=== PATIENT | female | born 1950 | race Caucasian/White ===

== ENCOUNTER 2023-09-24 10:07 | Outpatient (CLI) | payer MEDICARE, OTHER, SELFPAY | END 2023-09-24 10:08 | disposition home or self-care (01) | LOC: INJ CL 10:08 | PROVIDERS: PCP Family Medicine; Visit Provider Family Medicine | DX: M54.16 Radiculopathy, lumbar region (principal); M51.36 Other intervertebral disc degeneration, lumbar region | CPT/HCPCS: 62323; J0702; Q9966 ==

== ENCOUNTER 2024-03-24 11:08 | Outpatient (CLI) | payer MEDICARE, OTHER, SELFPAY ==
--- OUTSIDE RECORDS SUMMARY | 2024-03-24 11:10 | XMS_ITS | Clinical Summary ---
Author Organization [facility] Address [place], [place] [address] Care Team Providers Care Typing Teacher Name Role Phone Tiara Sanford MD Primary Care Provider [phone] Radha Gonzalez OD Unavailable [phone] Trino Cintron MD Unavailable [phone] Edouard Shelton MD Unavailable Staff, Other Clinical Unavailable Unavailabl e Allergies Active Allergy Reactions Criticality Noted Date Comments Atorvastatin Myalgia 10/31/2006 Medications Medication Sig Dispensed Refills Start Date End Date Status omega-3 fatty acids-vitamin E (FISH OIL) 1,000 mg Cap takes two caps daily 0 09/16/2009 Active cholecalciferol (VITAMIN D3) 2,000 unit capsuleIndications:V itamin D deficiency Take 1 capsule by mouth every day. 0 12/05/2011 Active guaifenesin/phenylep hrine HCl (MUCINEX COLD ORAL) Take 1 Tab by mouth every 6 hours if needed. Active oxygen-air delivery systems (HOME OXYGEN)Indications:C hronic respiratory failure with hypoxia, on home oxygen therapy (HC) Oxygen for home use. Liters per minute: 2 per nasal cannula. Frequency of use: Continuous with portability.;. Length of need: 99 Months. 1 Device 04/06/2020 Active metroNIDAZOLE 0.75 % cream 06/15/2021 Active ketoconazole 2% topical (NIZORAL) creamIndications:Tin ea corporis MASSAGE ONTO BOTTOMS OF FEET TWICE DAILY 60 g 2 04/06/2022 Active blood sugar diagnostic (FreeStyle Lite Strips) stripIndications:Typ e 2 diabetes mellitus with complication, without long-term current use of insulin (HC) As directed 1 Strip once daily. 100 Each 06/05/2022 Active rosuvastatin (CRESTOR) 5 mg tabletIndications:Hy perlipidemia, unspecified hyperlipidemia type Take 1 Tablet (5 mg) by mouth once daily. 90 Tablet 03/12/2023 Active predniSONE (DELTASONE) 20 mg tabletIndications:Ch ronic obstructive pulmonary disease, unspecified COPD type (HC) TAKE 1 TABLET THREE TIMES A DAY WITH MEALS FOR 5 DAYS 15 Tablet 2 03/12/2023 Active pantoprazole (PROTONIX) 40 mg delayed-release tabletIndications:Ga stroesophageal reflux disease without esophagitis Take 1 Tablet (40 mg) by mouth once daily. 90 Tablet 03/12/2023 Active metFORMIN (GLUCOPHAGE) 500 mg tabletIndications:Di abetes mellitus without complication (HC) Take 2 Tablets (1,000 mg) by mouth once daily with evening meal. 180 Tablet 03/12/2023 Active hydroCHLOROthiazide (HCTZ) 25 mg tabletIndications:Hy pertension, unspecified type Take 1 Tablet (25 mg) by mouth once daily. 90 Tablet 03/12/2023 Active fluticasone tlv-ztwvlcjmxrjx-oeo anterol (Trelegy Ellipta) 100-62.5-25 mcg inhalerIndications:C OPD, moderate (HC) Inhale 1 Puff by mouth once daily. 90 Each 03/12/2023 Active albuterol HFA (PRO-AIR; VENTOLIN; PROVENTIL) 90 mcg/actuation inhalerIndications:C hronic obstructive pulmonary disease, unspecified COPD type (HC) Inhale 1-2 Puffs by mouth every 4 hours if needed for Shortness of Breath 1st choice or Wheezing 1st choice. 1 Each 5 03/12/2023 Active cycloSPORINE (RESTASIS) 0.05 % ophthalmic emulsionIndications: Dry eyes Place 1 Drop into both eyes every 12 hours. 1 Each 11 05/06/2023 Active polyvinyl alcohol (ARTIFICAL TEARS) 1.4 % ophthalmic solutionIndications: Dry eyes Place 1 Drop into both eyes each time if needed for Dry Eyes. 15 mL 05/14/2023 Active levothyroxine (SYNTHROID) 112 mcg tabletIndications:Hy pothyroidism (acquired) TAKE 1 TABLET DAILY (BEST IF TAKEN ON EMPTY STOMACH) 90 Tablet 2 06/22/2023 Active Clobetasol Propionate 0.05 % shampooIndications:P soriasis Apply a thin layer onto dry, affected area twice a week Leave for 15 minutes before lathering and rinsing. 118 mL 2 07/01/2023 Active dulaglutide (Trulicity) 0.75 mg/0.5 mL subcutaneous penIndications:Type 2 diabetes mellitus with complication, without long-term current use of insulin (HC) Inject 0.75 mg subcutaneous once weekly. 6 mL 2 08/28/2023 Active ibuprofen (ADVIL; MOTRIN) 600 mg tabletIndications:Ot her follicular cysts of the skin and subcutaneous tissue Take 1 Tablet (600 mg) by mouth every 6 hours if needed for Pain. Maximum of 3200 mg in 24 hours. 30 Tablet 09/18/2023 Active meloxicam 15 mg tabletIndications:Pr imary osteoarthritis of both knees TAKE 1 TABLET DAILY 90 Tablet 01/10/2024 Active LORazepam (ATIVAN) 1 mg tabletIndications:Silke mbar radiculopathy Take 1 Tablet (1 mg) by mouth one time for 1 dose. Before mri 1 Tablet 02/13/2024 Active oxybutynin XL (DITROPAN XL) 5 mg CR tabletIndications:Ur inary incontinence, unspecified type Take 1 Tablet (5 mg) by mouth once daily. 90 Tablet 3 02/17/2024 Active FLUoxetine (PROZAC) 10 mg capsuleIndications:D epression, major, single episode, mild (HC) Take 1 Capsule (10 mg) by mouth every morning. 90 Capsule 02/17/2024 Active Active Problems Problem Noted Date Diagnosed Date Right renal mass 02/23/2022 Overview: seen on lung CT scan: negative renal US to follow- no further work up needed. History of tobacco use 02/23/2022 Chronic obstructive pulmonary disease 10/09/2019 Overview: seen by pulmonology: recommend annual breathing testing. Some stable scarring from previous pneumonia Chronic respiratory failure with hypoxia, on home oxygen therapy 10/09/2019 Type 2 diabetes mellitus wit h complication, without long-term current use of insulin 04/29/2019 Arthritis of left hip 10/13/2018 Genu varum of both lower extremities 03/28/2018 Basal cell carcinoma of forehead 03/16/2014 Vitamin D deficiency 11/10/2010 Mildly prolonged Q-T interva l on ECG (QT/QTc 474/485 ms 01/04/2010) 11/10/2010 Hypothyroidism 01/09/2010 Sensorineural hearing loss, bilateral 06/22/2008 Esophageal reflux 08/26/2006 Other and unspecified hyperlipidemia 08/26/2006 Type II or unspecified type diabetes mellitus without mention of complication, not stated as uncontrolled Resolved Problems Problem Noted Date Diagnosed Date Resolved Date Obesity, morbid 06/04/2022 03/12/2023 Left hip pain 02/13/2019 03/12/2023 Arthritis of right knee 10/13/2018 05/0 02/2022 Rash 08/21/2018 10/08/2018 Status post total right knee replacement 08/05/2018 02/08/2022 Knee contracture, right 08/05/201808/08 Chronic pain of right knee 08/04/2018 1 10/29/2017 Gait disturbance 08/04/2018 08/15/2018 Status post right hip replacement 08/04/2018 02/08/2022 Arthritis of right knee 02/03/201808/08 Morbid obesity 12/18/2017 10/08/2018 Presence of artificial hip, right 11/06/2017 08/01/2018 Drainage from wound 11/06/2017 08/01/20 18 Status post right hip replacement 11/04/2017 08/01/2018 Fat necrosis 11/04/2017 08/01/2018 Drainage from wound 11/04/2017 08/01/20 18 Gait disturbance 10/17/2017 08/01/2018 Chronic hip pain 10/10/2017 08/01/2018 Arthritis of right hip 10/10/201708/01 Knee pain 11/08/2011 08/01/2018 Overview: Knee pain: known meniscal tear: not repairable, intermittent FMLA paperwork completed:11/07/2011 Moderate persistent asthma 05/26/2011 0 02/15/2016 Moderate persistent asthma 05/26/2011 0 05/26/2011 Carline's thyroiditis 01/09/201005/08 Unspecified asthma(493.90) 01/09/2010 0 05/26/2011 Vitamin D deficiency 01/05/2010 010 Chronic airway obstruction, not elsewhere classified 08/26/2006 10/09/2019 Overview: asthma pulmonary function testing revealed moderate obstruction Osteoarthrosis, unspecified whether generalized or localized, unspecified site 08/26/2006 03/12/2023 Myalgia and myositis, unspecified 08/26/2006 04/06/2010 Chronic obstructive pulmonary disease 08/01/2018 Simple chronic bronchitis Gastroesophageal reflux disease 08/01/2018 Chronic pain of right hip Status post hip surgery 07/08 Encounters Date Type Department Care Team Description 03/22/2024 Travel 02/26/2024 Telephone [facility] [address] [place] [address] Devante Blackmon MD Results (MRI) 02/24/2024 10:42 AM CDT - 02/24/2024 11:59 PM CDT Hospital Encounter [facility] [address] [place] [address] Devante Blackmon MD DDD (degenerative disc disease), lumbar; Lumbar radiculopathy; Arthritis of left hip; Primary osteoarthritis of left knee; Lumbar facet arthropathy 02/24/2024 Travel 02/17/2024 3:15 PM CDT Office Visit [facility] [address] [place] [phone] Tiara Sanford MD Diabetes (No concerns); Urinary Problem (Since October been having concerns) 02/17/2024 Travel 02/13/2024 10:20 AM CDT Office Visit [facility] [address] [place] [address] Devante Blackmon MD Musculoskeletal Problem (Follow up back, left hip and left knee pain) 02/12/2024 Travel 01/08/2024 Refill [facility] [address] [place] [address] Tiara Sanford MD Refill Request (Meloxicam) 12/24/2023 Telephone [facility] [address] [facility] [place] [phone] Tiara Sanford MD Form from Last 3 Months Immunizations Name Administration Dates Next Due COVID-19 vaccine (Moderna 100mcg/0.5mL) SOFYA KHANNA 01/15/2022,07/28/2021,12/09/2020,2020 Hepatitis A (Adult) 04/03/2010,10/17/2009 Influenza A (H1N1), Inactiva loraine (Age >=3 Years) 10/04/2009 Influenza, High-dose Inactivated 08/07/2019,04/2016 Influenza, High-dose Quadriv alent Inactivated 07/02/2023,07/25/2022 Influenza, IIV3 (Age 6-35 mos) 09/11/2011 Influenza, IIV3 (Age >=3 years) 07/01/20 13,09/01/2012,09/11/2011,2009,10/04/2009,08/26/2006 Influenza, IIV4 08/06/2019,08/12/2015,07/05/2014 Influenza, Inactivated AIIV4 (Age 65+ Years) Preserv Free 08/21/2021,08/06/2020 Influenza, Inactivated IIV3 (Age 65+ Years) Preserv Free 06/23/2018,07/11/2017 Pneumococcal Poly,23-Valent (Pneumovax) 08/14/2017,08/26/2006 Pneumococcal conj 13-Valent (Prevnar 13) 08/13/2016 Td (Age >=7 Years) 10/07/1997 Tdap 02/19/2022,04/01/2009 Typhoid (injectable) 04/03/2010 Zoster (Zostavax-ZVL, live) 07/06/2014 Family History Medical History Relation Name Comments Cancer-breast Brother 1 Cancer-prostate Brother 2 Diabetes Brother 3 Alcohol/Drug Brother 4 Hypertension Brother 5 Allergies Daughter 2 seasonal Asthma Daughter 3 Cancer Father throat Hypertension Father Diabetes Mother Hyperlipidemia Mother Hypertension Mother Cancer-breast Paternal Aunt 1 x2 Cancer-breast Paternal Aunt 2 Cancer-breast Sister 2 Diabetes Sister 2 Cancer-breast Sister 3 Arthritis Sister 4 x2 Hypertension Sister 5 x2 Hyperlipidemia Sister 6 x2 Thyroid Disease Sister 7 Relation Name Status Comments Brother 1 Alive Brother 2 Brother 3 Brother 4 Brother 5 Daughter 1 Alive x3 Daughter 2 Daughter 3 Father Maternal Grandfather Maternal Grandmother Mother (Age 91) Paternal Aunt 1 Paternal Aunt 2 Paternal Grandfather Paternal Grandmother Sister 1 Alive x3 Sister 2 pre cancer Sister 3 Sister 4 Sister 5 Sister 6 Sister 7 Son Alive Social History Tobacco Use Types Packs/Day Years Used Date Smoking Tobacco: Former Cigarettes 2 30 0 10/07/1966 - 10/07/1996 Passive Smoke Exposure: Past Smokeless Tobacco: Never Tobacco Cessation:Counseling Given: Yes Alcohol Use Standard Drinks/Week Comments Yes 0 (1 standard drink = 0.6 oz pur e alcohol) 1-2 glasses of wine per day PHQ-2 Answer Date Recorded PHQ-2 TOTAL SCORE 0 02/17/2024 Social Connections Answer Date Recorded Frequency of Communication with Friends and Fami ly Not on file 03/16/2024 Financial Resource Strain Answer Date R ecorded Difficulty of Paying Living Expenses 3 03/12/2023 Difficulty of Paying Living Expenses Not on file 03/12/2023 Food Insecurity Answer Date Recorded Worried About Running Out of Food in the Last Ye ar 1 03/12/2023 Transportation Needs Answer Date Record ed Lack of Transportation (Medical) 1 03/12/2023 Housing Stability Answer Date Recorded Unable to Pay for Housing in the Last Year 1 03/12/2023 Sex and Gender Information Value Date Recorded Sex Assigned at Not on file Gender Identity Female 10/03/2022 7:24 AM [facility]ONE [facility]IGGER Sexual Orientation Not on file Obstetrics History Para Term AB IAB SAB Ectopic Multiple Livin g Live Births 4 4 Date Outcome GA Total Labor Labor/2nd/3rd Weight Sex Type Anes PTL Ana A1 A5 Name Clin Last Filed Vital Signs Vital Sign Reading Time Taken Comments Blood Pressure 128/82 02/17/2024 3:11 PM CDT Pulse 64 02/17/2024 3:11 PM CDT Temperature 36.7 ??C (98.1 ??F) 02/13/2024 10:21 AM C DT Respiratory Rate 19 02/17/2024 3:11 PM CDT Oxygen Saturation 93% 02/17/2024 3:30 PM CDT Inhaled Oxygen Concentration - - Weight 99.8 kg (220 lb 1.6 oz) 02/17/2024 3:11 P M CDT Height 162 cm (5' 3.78) 02/17/2024 3:11 PM CDT Body Mass Index 38.04 02/17/2024 3:11 PM CDT Plan of Treatment Upcoming Encounters Date Type Department Care Team (Late st Contact Info) Description 04/27/2024 3:15 PM CDT Office Visit [facility] [address] [place] [address] Tiara Sanford MD [address] [place] [address] Health Maintenance Due Date Last Done Comments Zoster (shingles) series for age 50+ (2 of 3) 08/31/2014 07/06/2014 COVID-19 vaccine series (2022- season) 2023 07/02/2023, 07/10/2022, 01/15/2022, Additional history exists Fecal testing non-DNA (FIT,FOBT,iFOBT) for age 45-75 05/03/2024 05/03/2023, 03/02/2022, 10/24/2020, Additional history exists Influenza for age 65+ 06/07/2024 07/02/2023 , 07/25/2022, 08/21/2021, Additional history exists Medicare Wellness for age 65+ 2024, 02/07/2022, 01/09/2021, Additional history exists Mammogram for age 45-75 09/26/2024 09/26/20 23, 10/05/2022, 10/04/2021, Additional history exists BMI (ht and wt on same day) for age 18+ 02/16/2025 02/17/2024, 2023, 03/12/2023, Additional history exists Depression screening for age 12+ 02/16/2025 02/17/2024, 2023, 04/06/2022, Additional history exists Lipids for age 45-75 02/16/2029 02/17/2024, 2023, 03/12/2023, Additional history exists Tetanus booster 02/20/2032 02/19/2022, 03/08, 10/07/1997 DEXA/DXA scan for age 65+ Completed 07/04/2017 Pneumococcal series for age 65+ Completed 08/14/2017, 08/13/2016, 08/26/2006 Hepatitis C screening for ag e 18-79 Completed 10/09/2019 Tdap Completed 02/19/2022, 04/01/2009 Medical Devices Implanted Type Area Lamp Shade Sewer Device Identifier Shelf Expiration Date Model / Serial / Lot [id number] - [id number] Implanted:Qty: 1 on 10/29/2017 by Chris Olvera MD at [facility] Right: Hip [employer] 05/07/2022 [id number] / / [id number] Description:Tritanium Hemispherical Cluster Hole Shell SILVESTRE 50mm ALPH CDE D [id number] - [id number] Implanted:Qty: 1 on 10/29/2017 by Chris Olvera MD at [facility] Right: Hip [employer] 07/22/[id number] / / [id number] Description:Torx 6.5mm Cancellous Bone Screw TEETEE 6.5mm LNTH 20mm [id number] - [id number] Implanted:Qty: 1 on 10/29/2017 by Chris Olvera MD at [facility] Right: Hip [employer] 08/07/[id number] / / [id number] Description:Torx 6.5mm Cancellous Bone Screw TEETEE 6.5mm LNTH 16mm [id number] - [id number] Implanted:Qty: 1 on 10/29/2017 by Chris Olvera MD at [facility] Right: Hip [employer] 07/16/20217015-8176-1 / / [id number] Description:Acetabular Dome Hole Plug [id number] - [id number] Implanted:Qty: 1 on 10/29/2017 by Chris Olvera MD at [facility] Right: Hip [employer] 07/15/2022 [id number] / / [id number] Description:Trident X3 10 degree Polyethylene Insert ID 32 mm ALPH CDE D [id number] - [id number] Implanted:Qty: 1 on 10/29/2017 by Chris Olvera MD at [facility] Right: Hip [employer] 12/04/2019 [id number] / / [id number] Description:Accolade II 127 degree Neck Angle Hip Stem SILVESTRE #4 NK LNTH 35 mm STM LNTH 105mm TPR V40 [id number] - [id number] Implanted:Qty: 1 on 10/29/2017 by Chris Olvera MD at [facility] Right: Hip [employer] 07/03/2022 [id number] / / [id number] Description:Biolox delta Ceramic V40 Femoral Head OD 32mm NK LNTH +0mm [id number] - [id number] Implanted:Qty: 1 on 08/05/2018 by Chris Olvera MD at [facility] Right: Knee [employer] 05/03/2028 [id number] / / [id number] Description:Moira II right tibial baseplate [id number] - [id number] Implanted:Qty: 1 on 08/05/2018 by Chris Olvera MD at [facility] Right: Knee [employer] 11/11/2027 [id number] / / [id number] Description:Moira II resur facing patellar component [id number] - [id number] Implanted:Qty: 1 on 08/05/2018 by Chris Olvera MD at [facility] Right: Knee [employer] 05/01/2026 [id number] / / [id number] Description:Size 3-4 9mm leg ion ps xl pe high flexion articular insert Cmnt Bone 40gm Rally Mv Ab - [id number] Implanted:Qty: 2 on 08/05/2018 by Chris Olvera MD at [facility] Right: Knee [employer] 03/06/2023 [id number] / / [id number] Description:cement [id number] - [id number] Implanted:Qty: 1 on 08/05/2018 by Chris Olvera MD at [facility] Right: Knee [employer] 01/11/2028 [id number] / / [id number] Description:Posterior stabil ized legion Procedures Procedure Name Priority Date/Time Associated Diagnosis Comments AMB EPIDURAL STEROID INJECTION Routine 03/24/2024 8:02 AM CDT Spinal stenosis of lumbar region with neurogenic claudication DDD (degenerative disc disease), lumbar Lumbar radiculopathy MR SPINE LUMBAR WO Routine 02/24/2024 11 :36 AM CDT DDD (degenerative disc disease), lumbar Lumbar radiculopathy Arthritis of left hip Primary osteoarthritis of left knee Lumbar facet arthropathy TSH Routine 02/17/2024 3:03 PM CDT Hypothyroidism, unspecified type VITAMIN D 25 (DEFICIENCY) Routine 02/17/2024 3:03 PM CDT Vitamin D deficiency LIPID PANEL W REFLEX MEASURED LDL Routine 02/17/2024 3:03 PM CDT Type 2 diabetes mellitus with complication, without long-term current use of insulin (HC) ALT (SGPT) Routine 02/17/2024 3:03 PM CDT Type 2 diabetes mellitus with complication, without long-term current use of insulin (HC) BASIC METABOLIC PANEL Routine 02/17/2024 3:03 PM CDT Type 2 diabetes mellitus with complication, without long-term current use of insulin (HC) CBC W PLT NO DIFF Routine 02/17/2024 3:0 3 PM CDT Type 2 diabetes mellitus with complication, without long-term current use of insulin (HC) HEMOGLOBIN A1C Routine 02/17/2024 3:03 PM CDT Type 2 diabetes mellitus with complication, without long-term current use of insulin (HC) XR MAMMO KATHE BILAT SCREEN Routine 09/26/2023 3:16 PM [facility]GER Encounter for screening mammogram for malignant neoplasm of breast OCCULT BLOOD IFOBT STOOL Routine 05/03/2023 2:11 PM CDT Screening for colon cancer ANTI HCV Add On 10/09/2019 1:08 PM STONE RIGGER Encounter for hepatitis C screening test for low risk patient XR DXA BONE DENSITY 2 SITES AXIAL Routine 07/04/2017 11:40 AM CDT Post-menopausal from Last 3 Months or Most Recently Relevant to Health Maintenance Results * MR SPINE LUMBAR WO (02/24/2024 11:36 AM CDT) Anatomical Region Laterality Modality Spine, LUMBAR SPINE Magnetic Res onance 02/24/2024 12:5 3 PM CDT Narrative 02/24/2024 12:53 PM CDT For Patients: ??As a result of the Century Cures Act, medical imaging exams and procedure reports are released immediately into your electronic medical record. ??You may view this report before your referring provider. ??If you have questions, please contact your health care provider. Indication: Lumbar degenerative disc disease. Lumbar radiculopathy. Technique: Noncontrast MRI scan of the lumbar spine. Comparison: MRI scan of the lumbar spine 01/02/2017. Findings: General: The visualized lower thoracic cord is unremarkable and the conus has a normal termination at the midbody of L1. There is an old mild anterior wedge fracture deformity of the superior endplate of T11. No acute fracture or suspicious bone lesion. Degenerative disc disease and facet arthrosis throughout the lumbar spine. Normal paraspinal soft tissues. Disc levels: L1-L2: Minimal posterior broad-based disc bulge and mild bilateral facet hypertrophy. No focal disc protrusion, nerve root impingement or spinal stenosis. L2-L3: Mild disc space height loss and decreased disc signal. Posterior broad- based disc protrusion. Right posterior lateral tiny annular fissure. Mild bilateral facet hypertrophy and ligamentum flavum thickening. No focal disc protrusion or nerve root impingement. Smvr-wr-kddqdylc spinal stenosis. Mild bilateral foraminal stenosis, worse on the right. L3-L4: Disc space height loss and decreased disc signal. Posterior broad-based disc protrusion. Posterior left paracentral annular fissure. No focal disc protrusion or definite nerve root impingement. Moderate/severe spinal stenosis. Bilateral lateral recess stenosis. Moderate/severe left foraminal stenosis and mild right foraminal stenosis. L4-L5: Disc space height loss and decreased disc signal. Grade 1 anterolisthesis of L4 with disc uncovering. Mild posterior broad-based disc protrusion. Bilateral facet hypertrophy and ligamentum flavum thickening. Severe spinal stenosis. Bilateral lateral recess stenosis, worse on the left. Mild bilateral foraminal stenosis, worse on the right. L5-S1:Unremarkable disc. Bilateral facet hypertrophy, worse on the right. Mild bilateral foraminal stenosis. No focal disc protrusion or nerve root impingement. No spinal stenosis. Impression: 1. Degenerative spondylosis of the lumbar spine with varying degrees of spinal stenosis as detailed above. There is moderate/severe spinal stenosis at L3-L4 and severe spinal stenosis at L4-L5. 2. Old mild anterior wedge fracture deformity of the superior endplate of T11. Dictated by Braydon Blandon MD @ 02/24/2024 12:53:35 PM (Electronically Signed) Procedure Note Braydon Blandon MD - 02/24/2024 For Patients: As a result of the Century Cures Act, medical imagingexams and procedure reports are released immediately into your electronicmedical record. You may view this report before your referring provider.If you have questions, please contact your health care provider. Indication: Lumbar degenerative disc disease. Lumbar radiculopathy. Technique: Noncontrast MRI scan of the lumbar spine. Comparison: MRI scan of the lumbar spine 01/02/2017. Findings: General: The visualized lower thoracic cord is unremarkable and the conushas a normal termination at the midbody of L1. There is an old mildanterior wedge fracture deformity of the superior endplate of T11. Noacute fracture or suspicious bone lesion. Degenerative disc disease andfacet arthrosis throughout the lumbar spine. Normal paraspinal softtissues. Disc levels: L1-L2: Minimal posterior broad-based disc bulge and mild bilateral facethypertrophy. No focal disc protrusion, nerve root impingement or spinalstenosis. L2-L3: Mild disc space height loss and decreased disc signal. Posteriorbroad- based disc protrusion. Right posterior lateral tiny annular fissure.Mild bilateral facet hypertrophy and ligamentum flavum thickening. Nofocal disc protrusion or nerve root impingement. Wgtp-td-zhshlnaz spinalstenosis. Mild bilateral foraminal stenosis, worse on the right. L3-L4: Disc space height loss and decreased disc signal. Posteriorbroad-based disc protrusion. Posterior left paracentral annular fissure.No focal disc protrusion or definite nerve root impingement.Moderate/severe spinal stenosis. Bilateral lateral recess stenosis.Moderate/severe left foraminal stenosis and mild right foraminal stenosis. L4-L5: Disc space height loss and decreased disc signal. Grade 1anterolisthesis of L4 with disc uncovering. Mild posterior broad-baseddisc protrusion. Bilateral facet hypertrophy and ligamentum flavumthickening. Severe spinal stenosis. Bilateral lateral recess stenosis,worse on the left. Mild bilateral foraminal stenosis, worse on theright. L5-S1:Unremarkable disc. Bilateral facet hypertrophy, worse on the right.Mild bilateral foraminal stenosis. No focal disc protrusion or nerve rootimpingement. No spinal stenosis. Impression: 1. Degenerative spondylosis of the lumbar spine with varying degrees ofspinal stenosis as detailed above. There is moderate/severe spinalstenosis at L3-L4 and severe spinal stenosis at L4-L5. 2. Old mild anterior wedge fracture deformity of the superior endplate ofT11. Dictated by Braydon Blandon MD @ 02/24/2024 12:53:35 PM (Electronically Signed) Devante Blackmon MD MR * (ABNORMAL) LIPID PANEL W REFLEX MEASURED LDL (02/17/2024 3:03 PM CDT) CHOLESTEROL,TOTAL 201(H) 100 - 199 mg/dL 02/17/2024 4:23 PM CDT [facility] Comment: Cholesterol, Total Reference Ranges Desirable <200 mg/dL Borderline 200-239 mg/dL High >=240 mg/dL TRIGLYCERIDES 271(H) <150 mg/dL 02/17/2024 4:23 PM T [facility] HDL CHOLESTEROL 48 >40 mg/dL 4:23 PM T [facility] NON-HDL CHOLESTEROL 153(H) <145 mg/dl 02/17/2024 4:23 PM T [facility] CHOL/HDL RATIO 4.19 <4.50 02/17/2024 4:23 PM T [facility] LDL CHOLESTEROL 99 <=130 mg/dL 02/17/2024 4:23 PM LOCATED WITHIN [facility] VLDL CHOLESTEROL 54(H) <=30 mg/dL 02/17/2024 4:23 PM T [facility] PROVIDER ORDERED STATUS RANDOM 02/17/2024 4:23 PM [facility]ATED [facility] Blood BLOOD SPECIMEN / Unknown Venipuncture / Unknown 02/17/2024 3:03 PM CDT 02/17/2024 3:05 PM CDT Tiara Sanford MD CHEMISTRY [facility] [address] [place] [address] * VITAMIN D 25 (DEFICIENCY) (02/17/2024 3:03 PM CDT) VITAMIN D TOTAL 61.8 20.0 - 80.0 ng/mL 02/18/2024 6:04 PM CDT [facility] Blood BLOOD SPECIMEN / Unknown Venipuncture / Unknown 02/17/2024 3:03 PM CDT 02/17/2024 3:05 PM CDT Narrative [facility] - 02/18/2024 6:04 PM CDT ? Vitamin D Status Deficiency: ? <20 ng/mL Insufficiency: ?20-29 ng/mL Sufficiency: ?30-80 ng/mL Possible Toxicity: ??>80 ng/mL Based on [place] of [employer] recommendations Biotin supplements may cause clinically significant interference for this test assay. ??If interference is suspected, it is strongly recommended that biotin is discontinued for at least one week prior to retesting. Tiara Sanford MD SEND OUTS Performing Organization Address [facility] Co de Phone Number [facility] [address] [place] [address], * TSH (02/17/2024 3:03 PM CDT) Pathologist [facility] TSH 2.27 0.27 - 4.20 uIU/mL 02/17/2024 4:08 PM CDT [facility] Blood BLOOD SPECIMEN / Unknown Venipuncture / Unknown 02/17/2024 3:03 PM CDT 02/17/2024 3:05 PM CDT [facility] - 02/17/2024 4:08 PM CDT In Adults, TSH values between 5.00 and 10.00 uIU/ml do not necessarily indicate the presence of Hypothyroidism. Correlation with clinical findings such as presence of goiter and/or Thyroperoxidase (TPO) Antibody may be helpful. For more information please refer to JAIDA 2004; 291: 228-238. Tiara Sanford MD CHEMISTRY Performing Organization Address [facility] Co de Phone Number [facility] [address] [place] [address] * CBC W PLT NO DIFF (02/17/2024 3:03 PM CDT) Pathologist [facility] WHITE BLOOD COUNT 7.6 4.5 - 11.0 thou/cu mm 02/17/2024 3:35 PM CDT [facility] RED BLOOD COUNT 4.52 4.00 - 5.20 mil/cu mm 02/17/2024 3:35 PM CDT [facility] HEMOGLOBIN 14.9 12.0 - 16.0 g/dL 02/17/2024 3:35 PM CDT [facility] HEMATOCRIT 44.0 33.0 - 51.0 % 02/17/2024 3:35 PM CDT [facility] MCV 97 80 - 100 fL 02/17/2024 3:35 PM CDT [facility] MCH 33.0 26.0 - 34.0 pg 02/17/2024 3:35 PM CDT [facility] MCHC 33.9 32.0 - 36.0 g/dL 02/17/2024 3:35 PM CDT [facility] RDW 13.5 11.5 - 15.5 % 02/17/2024 3:35 PM CDT [facility] PLATELET COUNT 219 140 - 440 thou/cu mm 02/17/2024 3:35 PM CDT [facility] MPV 10.1 6.5 - 11.0 fL 02/17/2024 3:35 PM CDT [facility] Blood BLOOD SPECIMEN / Unknown Venipuncture / Unknown 02/17/2024 3:03 PM CDT 02/17/2024 3:05 PM CDT Tiara Sanford MD HEMATOLOGY [facility] [address] [place], [place] [id number] * ALT (SGPT) (02/17/2024 3:03 PM CDT) [facility] ALT (SGPT) 14 10 - 35 IU/L 02/17/2024 4:09 PM CDT [facility] Blood BLOOD SPECIMEN / Unknown Venipuncture / Unknown 02/17/2024 3:03 PM CDT 02/17/2024 3:05 PM CDT Tiara Sanford MD CHEMISTRY Performing Organization Address City/[facility]/ZIP Co de Phone Number [facility] [address] [place] [address] * HEMOGLOBIN A1C MONITORING (POCT) (02/17/2024 3:03 PM CDT) Pathologist [facility] HEMOGLOBIN A1C MONITORING (POCT) 6.4 <=6.4 % 02/17/2024 3:13 PM [facility] Blood BLOOD SPECIMEN / Unknown Venipuncture / Unknown 02/17/2024 3:03 PM CDT 02/17/2024 3:05 PM CDT Narrative [facility] - 02/17/2024 3:13 PM CDT ? (<=6.9%) ? Indicates good control ? (7.0% to 7.9%) ? Indicates fair control ? (>=8.0%) ? Indicates poor control ?? NOTE: ??These thresholds are guidelines and ?individual targets may vary. Falsely low levels may be seen with: Recent Transfusion, Recent Significant Blood Loss, Hemolytic Diseases, or Falsely elevated levels may be seen with: Untreated Anemias, Splenectomy ? Tiara Sanford MD CHEMISTRY [facility] [address] [place] [address] * (ABNORMAL) BASIC METABOLIC PANEL (02/17/2024 3:03 PM CDT) SODIUM 141 136 - 145 mmol/L 02/17/2024 4:10 PM [facility] POTASSIUM 4.1 3.5 - 5.1 mmol/L 02/17/2024 4:10 PM [facility] CHLORIDE 102 98 - 107 mmol/L 02/17/2024 4:10 PM [facility] CO2,TOTAL 29 22 - 29 mmol/L 02/17/2024 4:10 PM [facility] ANION GAP 10 5 - 18 02/17/2024 4:10 PM [facility] GLUCOSE 113(H) 70 - 99 mg/dL 02/17/2024 4:10 PM [facility] CALCIUM 9.9 8.8 - 10.2 mg/dL 02/17/2024 4:10 PM [facility] BUN 14 8 - 23 mg/dL 02/17/2024 4:10 PM T [facility] CREATININE 0.61 0.50 - 0.90 mg/dL 02/17/2024 4:10 PM [facility] BUN/CREAT RATIO 23(H) 10 - 20 4:10 PM T [facility] eGFR >90 >90 mL/min/1.7 3m2 02/17/2024 4:10 PM [facility] Comment:As of 2021, eG FR is calculated by the CKD-EPI creatinine equation without race adjustment. ??eGFR can be influenced by muscle mass, exercise, and diet. ??The reported eGFR is an estimation only and is only applicable if the renal function is stable. Blood BLOOD SPECIMEN / Unknown Venipuncture / Unknown 02/17/2024 3:03 PM CDT 02/17/2024 3:05 PM CDT Tiara Sanford MD CHEMISTRY Performing Organization Address City/State/[facility] Co de Phone Number [facility] [address] [place] [address] * XR MAMMO KATHE BILAT SCREEN (09/26/2023 3:16 PM STONE RIGGER) Anatomical Region Laterality Modality BREASTS, Breast Left, Breast Right Bilateral Mammography Impressions 09/27/2023 7:15 AM STONE RIGGER ??There is no radiographic evidence for malignancy. ??Recommend annual mammograms. MAMMOGRAM ASSESSMENT: ??ACR 2 Benign PATIENTS: You will also receive a letter with your examination results in an easy to read format. ??If you have questions about your results, please contact your referring provider. Narrative 09/27/2023 7:15 AM STONE RIGGER For Patients: As a result of the 21st Century Cures Act, medical imaging exams and procedure reports are released immediately into your electronic medical record. You may view this report before your referring provider. If you have questions, please contact your health care provider. XR MAMMO KATHE BILAT SCREEN [[id number]] CLINICAL HISTORY: ??This is an asymptomatic 73 y.o. patient. INDICATION FOR EXAM: Mammogram Screening. TECHNIQUE: CC & MLO views were obtained. ??This study was evaluated with the assistance of Computer-Aided Detection. Breast Tomosynthesis was used in interpretation. COMPARISON FILMS: Yes 10/05/22 [facility] ?? FINDINGS: ??The breasts have scattered areas of fibroglandular density. ??No suspicious masses or microcalcifications. ??There are benign appearing calcifications. and There are benign appearing mass(es), right breast. Tiara Sanford MD MAMMO * OCCULT BLOOD IFOBT STOOL [[id number]] (05/03/2023 2:11 PM CDT) STOOL BLOOD ,IFOBT Negative Negative 05/08/2023 10:00 AM CDT [facility] Stool STOOL SPECIMEN / Unknown Non-Blood / Unknown 05/03/2023 2:11 PM CDT 05/07/2023 2:21 PM CDT Tiara Sanford MD LABORATORY [facility] [address] [place] [address], [place] [phone] * ANTI HCV (10/09/2019 1:08 PM STONE RIGGER) HEPATITIS C ANTIBODY Non-React aleksander Non-React aleksander 10/09/2019 7:45 PM STONE RIGGER [facility] Comment:Antibodies to HCV no t detected; does not exclude the possibility of exposure to HCV. Blood BLOOD SPECIMEN / Unknown Venipuncture / Unknown 10/09/2019 1:08 PM STONE RIGGER 10/09/2019 1:09 PM STONE RIGGER Tiara Sanford MD SEND OUTS [facility] [address] [place] [address], [place] * XR DXA BONE DENSITY 2 SITES AXIAL (07/04/2017 11:40 AM CDT) Anatomical Region Laterality Modality Spine, HIPS, HIPL, HIPR Bone Den sitometry Narrative 07/09/2017 10:29 AM CDT Please see scanned document for results of this study. Tiara Sanford MD DEXA from Last 3 Months or Most Recently Relevant to Health Maintenance Advance Directives * Full Code (Latest Code Status on File) Date Activated Date Inactivated Comments 09/18/2023 8:28 AM 09/18/2023 3:42 PM Question Answer Comments Code Status Discussion: Reviewed Preferences * Full Code Date Activated Date Inactivated Comments 08/05/2018 6:02 AM 08/06/2018 4:06 PM Question Answer Comments Code Status Discussion: Discussed * Full Code Date Activated Date Inactivated Comments 10/29/2017 3:29 PM 11/02/2017 7:07 PM Question Answer Comments Code Status Discussion: Discussed * Full Code Date Activated Date Inactivated Comments 10/29/2017 9:13 AM 10/29/2017 3:29 PM Question Answer Comments Code Status Discussion: Discussed Care Teams Typing Teacher Relationship Specialty Start Date End Date Tiara Sanford MD [address] [facility] [place] [address] PCP - General 05/12/07 Radha Gonzalez, OD [address] [facility] [place] [address] Gas Tester 11/07/11 Trino Cintron MD [address] [facility] [place] [address] Surgery - Otolaryngology 11/07/11 Edouard Shelton MD [address] [facility] [place] [address] Surgery - Orthopedics 11/07/11 Staff, Other Clinical . Cardiology Cardiovascular Disease 11/07/11
--- OUTSIDE RECORDS SUMMARY | 2024-03-24 11:10 | XMS_ITS | Clinical Summary ---
Author Organization [facility] Address [address] [address] Phone Care Team Providers Care [employer] Wiring Technician Name Role Phone Unavailable Primary Care Provider Unavailabl e Allergies Active Allergy Reactions Criticality Noted Date Comments Atorvastatin Muscle pain Low 10/31/2006 Medications Medication Sig Dispensed Refills Start Date End Date Status albuterol HFA (Proair HFA, Ventolin HFA) 108 (90 Base) MCG/ACT inhalation aerosol 03/12/2023 Active Cholecalciferol 50 MCG (2000 UT) capsule Take 1 Capsule by mouth one time a day. 12/05/2011 Active desloratadine-pseudo ePHEDrine SR (Clarinex-D 12 Hour) 2.5-120 MG 12 hour tablet Take 1 Tablet by mouth two times a day. 06/29/2022 Active clobetasol (Clobex) 0.05 % shampoo Apply a thin layer onto dry, affected area twice a week Leave for 15 minutes before lathering and rinsing. 07/01/2023 Active doxycycline hyclate (Vibra-Tabs) 100 MG tablet 08/03/2023 Active empagliflozin (Jardiance) 10 MG Tablet Take 10 mg by mouth one time a day. 2023 Active hydroCHLOROthiazide (Hydrodiuril) 25 MG tablet 06/21/2023 Active ketoconazole (NIZORAL) 2 % topical cream MASSAGE ONTO BOTTOMS OF FEET TWICE DAILY 04/06/2022 Active levothyroxine (Synthroid) 112 MCG tablet 06/21/2023 Active meloxicam (Mobic) 15 MG tablet 06/21/2023 Active metFORMIN (Glucophage) 500 MG tablet 06/21/2023 Active metroNIDAZOLE (Metrocream) 0.75 % cream 06/15/2021 Active pantoprazole (Protonix) 40 MG delayed-release tablet 06/21/2023 Active polyvinyl alcohol (Artificial Tears; Akwa Tears) 1.4 % Solution INSTILL 1 DROP INTO BOTH EYES EACH TIME IF NEEDED FOR DRY EYES 05/15/2023 Active predniSONE (Deltasone) 20 MG tablet 03/12/2023 Active rosuvastatin (Crestor) 5 MG tablet 06/21/2023 Active Trelegy Ellipta 100-62.5-25 MCG/ACT Aerosol Powder Breath Activated 06/21/2023 Active oxygen inhalation gas Inhale 2 L/min into the lungs as needed for Shortness of Breath. portable w/ conserving device as needed. Active Active Problems Problem Noted Date Diagnosed Date Right renal mass 02/23/2022 08/06/2023 Overview: seen on lung CT scan: negative renal US to follow- no further work up needed. Chronic obstructive pulmonary disease 10/09/2019 08/06/2023 Overview: seen by pulmonology: recommend annual breathing testing. Some stable scarring from previous pneumonia Chronic respiratory failure with hypoxia, on home oxygen therapy 10/09/2019 08/06/2023 Arthritis of left hip 10/13/2018 08/06/2023 Genu varum of both lower extremities 03/28/2018 08/06/2023 Basal cell carcinoma of forehead 03/16/2014 08/06/2023 Prolonged Q-T interval on ECG 11/10/2010 Hypothyroidism 01/09/2010 08/06/2023 Esophageal reflux 08/26/2006 08/06/2023 Hyperlipidemia 08/26/2006 08/06/2023 Social History Tobacco Use Types Packs/Day Years Used Date Smoking Tobacco: Former Cigarettes Smokeless Tobacco: Never Sex and Gender Information Value Date Recorded Sex Assigned at Not on file Gender Identity Not on file Sexual Orientation Not on file Job Start Date Occupation Industry Not on file Not on file Not on file Obstetrics History Last Filed Vital Signs Vital Sign Reading Time Taken Comments Blood Pressure 164/74 08/06/2023 10:41 AM CDT Pulse 87 08/06/2023 10:34 AM CDT Temperature 36.6 ??C (97.8 ??F) 08/06/2023 10:34 AM C DT Respiratory Rate 18 08/06/2023 10:34 AM CDT Oxygen Saturation 92% 08/06/2023 10:34 AM CDT Inhaled Oxygen Concentration - - Weight - - Height - - Body Mass Index - - Plan of Treatment Health Maintenance Due Date Last Done Comments CT Colonography 1950 Cologuard 1950 Colonoscopy 1950 Colorectal Cancer Screening 1950 FIT/FOBT 1950 MAMMO,SCREEN 1950 MEDICARE AWV 1950 Sigmoidoscopy 1950 Pneumococcal Vaccine: 65+ yr s (Standing Order) (1 of 2 - PCV) 1957 PERTUSSIS (Standing Order) 1970 Shingrix (Zoster recombinant ) vaccine (Standing Order) (1 of 2) 1970 TETANUS (Standing Order) 1970 RSV Vaccination (60+ yrs) (Abrysvo/Arexvy) (1 - 1-dose 60+ series) 2011 DXA,FEMALES AGE 65 OR GREATER 2016 Influenza Vaccine Seasonal (Standing Order) (Season Ended) 2024 HPV Vaccine (Standing Order) Aged Out No longer eligible based on patient's age to complete this topic Hepatitis B Vaccine (Standin g Order) Aged Out No longer eligible b ased on patient's age to complete this topic [address] [place] [id number] HelioYaelAnalisa L Personal/Family Self [address] [place] [id number]
--- OUTSIDE RECORDS SUMMARY | 2024-03-24 11:10 | XMS_ITS | Continuity of Care Document ---
Author Name [facility] Organization [facility] Care Team Providers Care Hourly Shift Name Role Phone [facility] Unavailable Unavailable Medications Combined list of outpatient medications from Department of Defense and Veterans Affairs facilities.Medications provided include 1) outpatient medications from the last 15 months, and 2) patient-reported medications. Medication Details Route Status Patient Instructions Prescription Expires Prescription Number Last Dispense Date Ordering Provider Order Date Order Qty Source ABRYSVO (respirator y syncytial virus vaccine, preF A and B/PF), 120MCG/0.5, VIAL, INTRAMUSC, PFIZER US PHARM, 1 ea. VIAL Active [id number] 3 2022 1 Pharmac y Data Transac tion Service Facilit y ALBUTEROL SULFATE HFA (albuterol sulfate), 90 MCG, HFA AER AD, INHALATION, TEVA [employer], 8.5 g CANISTER Active [id number] 4 2023 8.5 Pharmac y Data Transac tion Service Facilit y ATIVAN (LORAZEPAM) , 1 MG, TABLET, ORAL, VALEANT, 100 ea. BOTTLE Cancele d [id number] : 2023 0 Pharmac y Data Transac tion Service Facilit y AZITHROMYCI N (azithromyc in), 250 MG, TABLET, ORAL, AUROBINDO PHARM, 6 ea. BLIST PACK Active [id number] 3 2022 6 Pharmac y Data Transac tion Service Facilit y AZITHROMYCI N (azithromyc in), 250 MG, TABLET, ORAL, [employer] 6 ea. BLIST PACK Cancele d [id number] : 2022 0 Pharmac y Data Transac tion Service Facilit y AZITHROMYCI N (azithromyc in), 250 MG, TABLET, ORAL, [employer] 6 ea. BLIST PACK Active [id number] 2022 6 Pharmac y Data Transac tion Service Facilit y CEPHALEXIN (CEPHALEXIN MONOHYDRATE ), 500MG, CAPSULE, ORAL, TEVA [place], 500 ea. BOTTLE Active [id number] 3 2022 30 Pharmac y Data Transac tion Service Facilit y CLOBEX (CLOBETASOL PROPIONATE) , 0.05%, SHAMPOO, TOPICAL, GALDERMA, 118 ml BOTTLE Active [id number] 2023 118 Pharmac y Data Transac tion Service Facilit y FLUOXETINE HCL (fluoxetine HCl), 10 MG, CAPSULE, ORAL, GERRY PHARMACEU, 1000 ea. BOTTLE Active [id number] 2023 90 Pharmac y Data Transac tion Service Facilit y GABAPENTIN (gabapentin ), 100 MG, CAPSULE, ORAL, [employer] 1000 ea. BOTTLE Active [id number] 3 2023 30 Pharmac y Data Transac tion Service Facilit y HYDROCHLORO THIAZIDE (hydrochlor othiazide), 25 MG, TABLET, ORAL, [employer] 1000 ea. BOTTLE Active [id number] 2023 90 Pharmac y Data Transac tion Service Facilit y HYDROCHLORO THIAZIDE (hydrochlor othiazide), 25 MG, TABLET, ORAL, [employer] 1000 ea. BOTTLE Active [id number] 4 2023 90 Pharmac y Data Transac tion Service Facilit y IBUPROFEN (ibuprofen) , 600 MG, TABLET, ORAL, AUROBINDO PHARM, 500 ea. BOTTLE Active [id number] 2023 30 Pharmac y Data Transac tion Service Facilit y LEVOTHYROXI NE SODIUM (levothyrox ine sodium), 112 MCG, TABLET, ORAL, AMNEAL PHARMACE, 100 ea. BOTTLE Cancele d [id number] : 2023 0 Pharmac y Data Transac tion Service Facilit y LEVOTHYROXI NE SODIUM (levothyrox ine sodium), 112 MCG, TABLET, ORAL, AMNEAL PHARMACE, 100 ea. BOTTLE Active [id number] 2023 90 Pharmac y Data Transac tion Service Facilit y LEVOTHYROXI NE SODIUM (levothyrox ine sodium), 112 MCG, TABLET, ORAL, AMNEAL PHARMACE, 100 ea. BOTTLE Active [id number] 2023 90 Pharmac y Data Transac tion Service Facilit y LORAZEPAM (lorazepam) , 1 MG, TABLET, ORAL, A[employer] PHARM, 500 ea. BOTTLE Active [id number] 2023 1 Pharmac y Data Transac tion Service Facilit y MELOXICAM (meloxicam) , 15 MG, TABLET, ORAL, [employer] 1000 ea. BOTTLE Active [id number] 2023 90 Pharmac y Data Transac tion Service Facilit y MELOXICAM (meloxicam) , 15 MG, TABLET, ORAL, PD[employer]RX PHARM, 1000 ea. BOTTLE Active [id number] 2022 90 Pharmac y Data Transac tion Service Facilit y METFORMIN HCL (METFORMIN HCL), 500 MG, TABLET, ORAL, [employer] 1000 ea. BOTTLE Active [id number] 2022 180 Pharmac y Data Transac tion Service Facilit y METFORMIN HCL (METFORMIN HCL), 500 MG, TABLET, ORAL, [employer] 1000 ea. BOTTLE Active [id number] 4 2023 180 Pharmac y Data Transac tion Service Facilit y OXYBUTYNIN CHLORIDE ER (oxybutynin chloride), 5 MG, TAB ER 24, ORAL, [employer], 100 ea. BOTTLE Active [id number] 2023 90 Pharmac y Data Transac tion Service Facilit y OXYCODONE-A CETAMINOPHE N (OXYCODONE HCL/ACETAMI NOPHEN), 5MG-325MG, TABLET, ORAL, MALLINKRT PHARM, 500 ea. BOTTLE Active [id number] 2023 20 Pharmac y Data Transac tion Service Facilit y PANTOPRAZOL E SODIUM (pantoprazo le sodium), 40 MG, TABLET DR, ORAL, [employer] 1000 ea. BOTTLE Active [id number] 2023 90 Pharmac y Data Transac tion Service Facilit y PANTOPRAZOL E SODIUM (pantoprazo le sodium), 40 MG, TABLET DR, ORAL, [employer] 1000 ea. BOTTLE Active [id number] 2023 90 Pharmac y Data Transac tion Service Facilit y PREDNISONE (prednisone ), 20 MG, TABLET, ORAL, NOVITIUM/AN I PH, 500 ea. BOTTLE Active [id number] 2022 15 Pharmac y Data Transac tion Service Facilit y PREDNISONE (prednisone ), 20 MG, TABLET, ORAL, NOVITIUM/AN I PH, 500 ea. BOTTLE Active [id number] 2023 15 Pharmac y Data Transac tion Service Facilit y ROSUVASTATI N CALCIUM (rosuvastat in calcium), 5 MG, TABLET, ORAL, [employer] 1000 ea. BOTTLE Active [id number] 2023 90 Pharmac y Data Transac tion Service Facilit y ROSUVASTATI N CALCIUM (rosuvastat in calcium), 5 MG, TABLET, ORAL, [employer] 90 ea. BOTTLE Active [id number] 2023 90 Pharmac y Data Transac tion Service Facilit y TRELEGY ELLIPTA (fluticason e furoate/ume clidinium bromide/sherri anterol trifenat), 100-62.5, BLST W/DEV, INHALATION, GLAXOSMITHK LINE, 60 ea. BLIST PACK Active [id number] 2023 180 Pharmac y Data Transac tion Service Facilit y TRELEGY ELLIPTA (fluticason e furoate/ume clidinium bromide/sherri anterol trifenat), 100-62.5, BLST W/DEV, INHALATION, GLAXOSMITHK LINE, 60 ea. BLIST PACK Active [id number] 2023 180 Pharmac y Data Transac tion Service Facilit y TRULICITY (DULAGLUTID E), 0.75MG/0.5, PEN INJCTR, SUB-Q, [employer] 0.5 ml SYRINGE Active [id number] 2023 6 Pharmac y Data Transac tion Service Facilit y TRULICITY (DULAGLUTID E), 0.75MG/0.5, PEN INJCTR, SUB-Q, [employer] 0.5 ml SYRINGE Active [id number] 2023 6 Pharmac y Data Transac tion Service Facilit y Immunizations Combined list of available immunizations from the Department of Defense and Veterans Affairs facilities. Immunization Series Date Given Administered By Site Reaction Lot Number CVX Code Drug Mine Shifter Status Comments Source Tdap 2021 OSORIO PALACIOS () Not Given Tdap DoD Social History Combined list of available smoking, tobacco, and other social history from Department of Defense and Veterans Affairs facilities. Social History Type Response Date Comment [facility] e This section is an empty social history section. DoD
== END 2024-03-24 11:09 | disposition home or self-care (01) ==
LOC: INJ CL 11:08
PROVIDERS: PCP Family Medicine; Visit Provider Family Medicine
DX: M54.16 Radiculopathy, lumbar region (principal); M51.36 Other intervertebral disc degeneration, lumbar region
CPT/HCPCS: 62323; J0702; Q9966

== ENCOUNTER 2024-07-14 09:46 | Outpatient (CLI) | payer MEDICARE, OTHER, SELFPAY ==
--- OUTSIDE RECORDS SUMMARY | 2024-07-14 11:10 | XMS_ITS | Continuity of Care Document ---
Author Name [facility] Organization [facility] Care Team Providers Care Podiatrist Name Role Phone [facility] Unavailable Unavailable Medications Combined list of outpatient [...] PFIZER US PHARM, 1 ea. VIAL Active [id number] 3 2022 1 Pharmac y Data Transac tion Service Facilit y ALBUTEROL SULFATE HFA (albuterol sulfate), 90 MCG, HFA AER AD, INHALATION, TEVA [place], 8.5 g CANISTER Active [id number] 4 2023 8.5 Pharmac y Data Transac tion Service Facilit y ALBUTEROL SULFATE HFA (albuterol sulfate), 90 MCG, HFA AER AD, INHALATION, TEVA [place], 8.5 g CANISTER Active [id number] 4 2023 8.5 Pharmac y Data Transac tion Service Facilit y ATIVAN (LORAZEPAM) , 1 MG, TABLET, ORAL, VALEANT, 100 ea. BOTTLE Cancele d [id number] : 2023 0 Pharmac y Data Transac tion Service Facilit y AZITHROMYCI N (azithromyc in), 250 MG, TABLET, ORAL, AUROBINDO PHARM, 6 ea. BLIST PACK Active [id number] 3 2022 6 Pharmac y Data Transac tion Service Facilit y AZITHROMYCI N (azithromyc in), 250 MG, TABLET, ORAL, [employer] 6 ea. BLIST PACK Cancele d [id number] : 2022 0 Pharmac y Data Transac tion Service Facilit y CEPHALEXIN (CEPHALEXIN MONOHYDRATE ), 500MG, CAPSULE, ORAL, TEVA [place], 500 ea. BOTTLE Active [id number] 2022 30 Pharmac y Data Transac tion Service Facilit y CLOBEX (CLOBETASOL PROPIONATE) , 0.05%, SHAMPOO, TOPICAL, GALDERMA, 118 ml BOTTLE Active [id number] 2023 118 Pharmac y Data Transac tion Service Facilit y FLUOXETINE HCL (fluoxetine HCl), 10 MG, CAPSULE, ORAL, [employer] PHARM[employer], 1000 ea. BOTTLE Active [id number] 2023 90 Pharmac y Data Transac tion Service Facilit y GABAPENTIN (gabapentin ), 100 MG, CAPSULE, ORAL, [employer] 1000 ea. BOTTLE Active [id number] 3 2023 30 Pharmac y Data Transac tion Service Facilit y IBUPROFEN (ibuprofen) , 600 MG, TABLET, ORAL, AUROBINDO PHARM, 500 ea. BOTTLE Active [id number] 2023 30 Pharmac y Data Transac tion Service Facilit y LEVOTHYROXI NE SODIUM (levothyrox ine sodium), 112 MCG, TABLET, ORAL, AMNEAL PHARMACE, 100 ea. BOTTLE Cancele d [id number] : 2023 0 Pharmac y Data Transac tion Service Facilit y LEVOTHYROXI NE SODIUM (levothyrox ine sodium), 112 MCG, TABLET, ORAL, AMNEAL PHARMACE, 100 ea. BOTTLE Active [id number] 2023 90 Pharmac y Data Transac tion Service Facilit y LEVOTHYROXI NE SODIUM (levothyrox ine sodium), 112 MCG, TABLET, ORAL, AMNEAL PHARMACE, 100 ea. BOTTLE Active [id number] 2023 90 Pharmac y Data Transac tion Service Facilit y LORAZEPAM (lorazepam) , 1 MG, TABLET, ORAL, AUROBINDO PHARM, 500 ea. BOTTLE Active [id number] 2023 1 Pharmac y Data Transac tion Service Facilit y MELOXICAM (meloxicam) , 15 MG, TABLET, ORAL, [employer] 1000 ea. BOTTLE Active [id number] 2023 90 Pharmac y Data Transac tion Service Facilit y MELOXICAM (meloxicam) , 15 MG, TABLET, ORAL, [employer] 1000 ea. BOTTLE Active [id number] 2023 90 Pharmac y Data Transac tion Service Facilit y MELOXICAM (meloxicam) , 15 MG, TABLET, ORAL, [employer]-RX PHARM, 1000 ea. BOTTLE Active [id number] 2022 90 Pharmac y Data Transac tion Service Facilit y METFORMIN HCL (METFORMIN HCL), 500 MG, TABLET, ORAL, [employer] 1000 ea. BOTTLE Cancele d [id number] : 2023 0 Pharmac y Data Transac tion Service Facilit y METFORMIN HCL (METFORMIN HCL), 500 MG, TABLET, ORAL, [employer] 1000 ea. BOTTLE Active [id number] 2023 180 Pharmac y Data Transac tion Service Facilit y OXYBUTYNIN CHLORIDE ER (oxybutynin chloride), 5 MG, TAB ER 24, ORAL, [employer], 100 ea. BOTTLE Active [id number] 2023 90 Pharmac y Data Transac tion Service Facilit y OXYCODONE-A CETAMINOPHE N (OXYCODONE HCL/ACETAMI NOPHEN), 5MG-325MG, TABLET, ORAL, [employer]ALL[employer]RT PHARM, 500 ea. BOTTLE Active [id number] 3 2023 20 Pharmac y Data Transac tion Service Facilit y PANTOPRAZOL E SODIUM (pantoprazo le sodium), 40 MG, TABLET DR, ORAL, [employer] 1000 ea. BOTTLE Cancele d [id number] : 2023 0 Pharmac y Data Transac tion Service Facilit y PANTOPRAZOL E SODIUM (pantoprazo le sodium), 40 MG, TABLET DR, ORAL, [employer] 1000 ea. BOTTLE Active [id number] 2023 90 Pharmac y Data Transac tion Service Facilit y PREDNISONE (prednisone ), 20 MG, TABLET, ORAL, NOVITIUM/AN I PH, 500 ea. BOTTLE Active [id number] 2022 15 Pharmac y Data Transac tion Service Facilit y ROSUVASTATI N CALCIUM (rosuvastat in calcium), 5 MG, TABLET, ORAL, [employer] 1000 ea. BOTTLE Cancele d [id number] : 2023 0 Pharmac y Data Transac tion Service Facilit y ROSUVASTATI N CALCIUM (rosuvastat in calcium), 5 MG, TABLET, ORAL, [employer] 1000 ea. BOTTLE Active [id number] 4 2023 90 Pharmac y Data Transac tion Service Facilit y TRULICITY (DULAGLUTID E), 0.75MG/0.5, PEN INJCTR, SUB-Q, [employer] 0.5 ml SYRINGE Active [id number] 4 2023 6 Pharmac y Data Transac tion Service Facilit y TRULICITY (DULAGLUTID E), 0.75MG/0.5, PEN INJCTR, SUB-Q, [employer] 0.5 ml SYRINGE Active [id number] 2023 6 Pharmac y Data Transac tion Service Facilit y Immunizations Combined list of available immunizations from the Department of Defense and Veterans Affairs facilities. Immunization Series Date Given Administered By Site Reaction Lot Number CVX Code Drug Donation Worker Status Comments Source Tdap 2021 OSORIO PALACIOS () Not Given Tdap [facility] Social History Combined list of available smoking, tobacco, and other social history from Department of Defense and Veterans Affairs facilities. Social History Type Response Date Comment [facility] e This section is an empty social history section. [facility]
--- OUTSIDE RECORDS SUMMARY | 2024-07-14 11:10 | XMS_ITS | Clinical Summary ---
Author Organization [facility] Mister Bell [facility] Address [address] [address] Phone Care Team Providers Care Tipple Repairer Name Role Phone Unavailable Primary Care Provider [...] AWV 1950 Sigmoidoscopy 1950 Pneumococcal Vaccine: 65+ yrs (Standing Order) (1 of 2 - PCV) 1957 PERTUSSIS (Standing Order) 1970 Shingrix (Zoster recombinant) vaccine (Standing Order) (1 of 2) 1970 TETANUS (Standing Order) 1970 DXA,FEMALES AGE 65 OR GREATER 2016 COVID-19 Vaccine ( season) 2024 07/02/2023, 07/10/2022, 01/15/2022, Additional history exists Influenza Vaccine Seasonal (Standing Order) (#1) 2024 HPV Vaccine (Standing Order) Aged Out No longer eligible based on patient's age to complete this topic Hepatitis B Vaccine (Standing Order) Aged Out No longer eligible based on patient's age to complete this topic [employer] Personal/Family Self [address] [place] [id number]
== END 2024-07-14 09:47 | disposition home or self-care (01) ==
LOC: INJ CL 09:53
PROVIDERS: PCP Family Medicine; Visit Provider Family Medicine
DX: M54.16 Radiculopathy, lumbar region (principal); M51.369 Other intervertebral disc degeneration, lumbar region without mention of lumbar back pain or lower extremity pain
CPT/HCPCS: 62323; J0702; Q9966

== ENCOUNTER 2025-04-06 13:50 | Outpatient (CLI) | payer MEDICARE, OTHER, SELFPAY ==
--- OUTSIDE RECORDS SUMMARY | 2025-04-06 06:55 | XMS_ITS | Continuity of Care Document ---
Author Name [facility] Organization [facility] Care Team Providers Care Doctorate Of Chiropractic Name Role Phone [facility] Unavailable Unavailable Medications Combined list of outpatient medications from Department of Defense and Veterans Affairs facilities.Medications provided include 1) outpatient medications from the last 15 months, and 2) patient-reported medications. Medication Details Route Status Patient Instructions Prescription Expires Prescription Number Last Dispense Date Ordering Provider Order Date Order Qty Source ALBUTEROL SULFATE HFA (albuterol sulfate), 90 MCG, HFA AER AD, INHALATION, TEVA [place], 8.5 g CANISTER Active [id number] 4 2023 8.5 Pharmac y Data Transac tion Service Facilit y ALBUTEROL SULFATE HFA (albuterol sulfate), 90 MCG, HFA AER AD, INHALATION, [employer]EVA [place], 8.5 g CANISTER Active [id number] 4 2023 8.5 Pharmac y Data Transac tion Service Facilit y ATIVAN (LORAZEPAM) , 1 MG, TABLET, ORAL, VALEANT, 100 ea. BOTTLE Cancele d [id number] : 2023 0 Pharmac y Data Transac tion Service Facilit y FLUOXETINE HCL (fluoxetine HCl), 10 MG, CAPSULE, ORAL, [employer]ACE[employer], 1000 ea. BOTTLE Active [id number] 4 2023 90 Pharmac y Data Transac tion Service Facilit y LEVOTHYROXI NE SODIUM (levothyrox ine sodium), 112 MCG, TABLET, ORAL, AMNEAL PHARMACE, 100 ea. BOTTLE Cancele d [id number] : 2023 0 Pharmac y Data Transac tion Service Facilit y LORAZEPAM (lorazepam) , 1 MG, TABLET, ORAL, [employer] PHARM, 500 ea. BOTTLE Active [id number] 2023 1 Pharmac y Data Transac tion Service Facilit y MELOXICAM (meloxicam) , 15 MG, TABLET, ORAL, [employer] 1000 ea. BOTTLE Active [id number] 4 2023 90 Pharmac y Data Transac tion Service Facilit y MELOXICAM (meloxicam) , 15 MG, TABLET, ORAL, [employer] 1000 ea. BOTTLE Active [id number] 4 2023 90 Pharmac y Data Transac tion Service Facilit y METFORMIN HCL (METFORMIN HCL), 500 MG, TABLET, ORAL, [employer] 1000 ea. BOTTLE Cancele d [id number] : 2023 0 Pharmac y Data Transac tion Service Facilit y METFORMIN HCL (METFORMIN HCL), 500 MG, TABLET, ORAL, [employer] 1000 ea. BOTTLE Active [id number] 2023 180 Pharmac y Data Transac tion Service Facilit y OXYBUTYNIN CHLORIDE ER (oxybutynin chloride), 5 MG, TAB ER 24, ORAL, [employer], 100 ea. BOTTLE Active [id number] 4 2023 90 Pharmac y Data Transac tion Service Facilit y PANTOPRAZOL E SODIUM (pantoprazo le sodium), 40 MG, TABLET DR, ORAL, [employer] 1000 ea. BOTTLE Cancele d [id number] : 2023 0 Pharmac y Data Transac tion Service Facilit y PANTOPRAZOL E SODIUM (pantoprazo le sodium), 40 MG, TABLET DR, ORAL, [employer] 1000 ea. BOTTLE Active [id number] 2023 90 Pharmac y Data Transac tion Service Facilit y ROSUVASTATI N CALCIUM (rosuvastat in calcium), 5 MG, TABLET, ORAL, [employer] 1000 ea. BOTTLE Cancele d [id number] : 2023 0 Pharmac y Data Transac tion Service Facilit y ROSUVASTATI N CALCIUM (rosuvastat in calcium), 5 MG, TABLET, ORAL, [employer] 1000 ea. BOTTLE Active [id number] 4 2023 90 Pharmac y Data Transac tion Service Facilit y Immunizations Combined list of available immunizations from the Department of Defense and Veterans Affairs facilities. Immunization Series Date Given Administered By Site Reaction Lot Number CVX Code Drug Lobsterman Status Comments Source Tdap 2021 OSORIO PALACIOS () Not Given Tdap [facility] Social History Combined list of available smoking, tobacco, and other social history from Department of Defense and Veterans Affairs facilities. Social History Type Response Date Comment [facility] e This section is an empty social history section. [facility]
--- OUTSIDE RECORDS SUMMARY | 2025-04-07 00:22 | XMS_ITS | Clinical Summary ---
Author Organization [facility] Address [address] [address] Phone Care Team Providers Care Point Of Sale Associate Name Role Phone Unavailable Primary Care Provider Unavailabl e Allergies Active Allergy Reactions Criticality Noted Date Comments Atorvastatin Muscle pain Low 10/31/2006 Medications albuterol HFA (Proair HFA, Ventolin HFA) 108 (90 Base) MCG/ACT inhalation aerosol 3 Active Cholecalciferol 50 MCG (2000 UT) capsule Take 1 Capsule by mouth one time a day. 2 Active desloratadine-p seudoePHEDrine SR (Clarinex-D 12 Hour) 2.5-120 MG 12 hour tablet Take 1 Tablet by mouth two times a day. 2 Active clobetasol (Clobex) 0.05 % shampoo Apply a thin layer onto dry, affected area twice a week Leave for 15 minutes before lathering and rinsing. 3 Active doxycycline hyclate (Vibra-Tabs) 100 MG tablet 3 Active empagliflozin (Jardiance) 10 MG Tablet Take 10 mg by mouth one time a day. 3 Active hydroCHLOROthia zide (Hydrodiuril) 25 MG tablet 3 Active ketoconazole (NIZORAL) 2 % topical cream MASSAGE ONTO BOTTOMS OF FEET TWICE DAILY 2 Active levothyroxine (Synthroid) 112 MCG tablet 3 Active meloxicam (Mobic) 15 MG tablet 3 Active metFORMIN (Glucophage) 500 MG tablet 3 Active metroNIDAZOLE (Metrocream) 0.75 % cream 1 Active pantoprazole (Protonix) 40 MG delayed-release tablet 3 Active polyvinyl alcohol (Artificial Tears; Akwa Tears) 1.4 % Solution INSTILL 1 DROP INTO BOTH EYES EACH TIME IF NEEDED FOR DRY EYES 3 Active predniSONE (Deltasone) 20 MG tablet 3 Active rosuvastatin (Crestor) 5 MG tablet 3 Active Trelegy Ellipta 100-62.5-25 MCG/ACT Aerosol Powder Breath Activated 3 Active oxygen inhalation gas Inhale 2 L/min into the lungs as needed for Shortness of Breath. portable w/ conserving device as needed. Active Active Problems Problem Noted Date Diagnosed Date Right renal mass 02/23/2022 08/06/2023 Overview (08/06/2023): seen on lung CT scan: negative renal US to follow- no further work up needed. Chronic obstructive pulmonary disease 10/09/2019 08/06/2023 Overview (08/06/2023): seen by pulmonology: recommend annual breathing testing. [...] Smoking Tobacco: Former Cigarettes Smokeless Tobacco: Never Comments Unknown Sex and Gender Information Value Date Recorded Sex Assigned at Not on file Legal Sex Female 10:10 AM CDT Gender Identity Not on file Sexual Orientation Not on file Obstetrics History Last Filed Vital Signs Vital Sign Reading Time Taken Comments Blood Pressure 164/74 08/06/2023 10:41 AM CDT Pulse 87 08/06/2023 10:34 AM CDT Temperature 36.6 C (97.8 F) 08/06/2023 10:34 AM CDT Respiratory Rate 18 08/06/2023 10:34 AM CDT Oxygen Saturation 92% 08/06/2023 10:34 AM CDT Inhaled Oxygen Concentration - - Weight - - Height - - Body Mass Index - - Plan of Treatment Health Maintenance Due Date Last Done Comments CT Colonography 1950 Cologuard 1950 Colonoscopy 1950 Colorectal Cancer Screening 1950 FIT/FOBT 1950 MAMMO,SCREEN 1950 MEDICARE AWV 1950 Sigmoidoscopy 1950 PERTUSSIS (Standing Order) 1970 Pneumococcal Vaccine: 50+ yrs (Standing Order) (1 of 2 - PCV) 1970 Shingrix (Zoster recombinant) vaccine (Standing Order) (1 of 2) 1970 TETANUS (Standing Order) 1970 RSV Vaccination (60+ yrs) (Abrysvo/Arexvy) (1 - Risk 60-74 years 1-dose series) 2011 DXA,FEMALES AGE 65 OR GREATER 2016 COVID-19 Vaccine (2023- season) 2024 07/02/2023, 07/10/2022, 01/15/2022, Additional history exists HPV Vaccine (Standing Order) Aged Out No longer eligible based on patient's age to complete this topic Hepatitis B Vaccine (Standing Order) Aged Out No longer eligible based on patient's age to complete this topic Insurance MEDICARE PART A & B [facility] [place] [employer] [facility]/MEDICARE
--- OUTSIDE RECORDS SUMMARY | 2025-04-07 00:22 | XMS_ITS | Clinical Summary ---
Author Organization [employer] [facility] [employer] [facility] Address [address] [place] [address] Care Team Providers Care Truck Driver Helper Name Role Phone Tiara Sanford MD Primary Care Provider [phone] Radha Gonzalez OD Unavailable [phone] Trino Cintron MD Unavailable Edouard Shelton MD Unavailable [phone] Staff, Other Clinical Unavailable Unavailabl e Allergies Active Allergy Reactions Criticality Noted Date Comments Atorvastatin Myalgia Low 10/31/2006 Medications cholecalciferol (VITAMIN D3) 2,000 unit capsuleIndication s:Vitamin D deficiency Take 1 capsule by mouth every day. 0 012 Active guaifenesin/pheny lephrine HCl (MUCINEX COLD ORAL) Take 1 Tab by mouth every 6 hours if needed. Active oxygen-air delivery systems (HOME OXYGEN)Indication s:Chronic respiratory failure with hypoxia, on home oxygen therapy (HC) Oxygen for home use. Liters per minute: 2 per nasal cannula. Frequency of use: Continuous with portability.;. Length of need: 99 Months. 1 Device 020 Active albuterol HFA (PRO-AIR; VENTOLIN; PROVENTIL) 90 mcg/actuation inhalerIndication s:Chronic obstructive pulmonary disease, unspecified COPD type (HC) Inhale 1-2 Puffs by mouth every 4 hours if needed for Shortness Of Breath. 1 Each 024 Active rosuvastatin (CRESTOR) 5 mg tabletIndications :Hyperlipidemia, unspecified hyperlipidemia type Take 1 Tablet (5 mg) by mouth once daily. 90 Tablet 024 Active predniSONE (DELTASONE) 20 mg tabletIndications :Chronic obstructive pulmonary disease, unspecified COPD type (HC) TAKE 1 TABLET THREE TIMES A DAY WITH MEALS FOR 5 DAYS 15 Tablet 72 024 Active azithromycin (ZITHROMAX) 250 mg tabletIndications :Chronic obstructive pulmonary disease, unspecified COPD type (HC) TAKE 2 TABLETS THE FIRST DAY AND 1 TABLET DAILY ON DAYS 2 THROUGH 5 6 Tablet 72 024 Active glipiZIDE extended-release (GLUCOTROL XL) 10 mg Extended-Release tabletIndications :Type 2 diabetes mellitus with complication, without long-term current use of insulin (HC) Take 1 Tablet (10 mg) by mouth once daily before a meal. 90 Tablet 3 024 Active levothyroxine (Synthroid) 112 mcg tabletIndications :Hypothyroidism (acquired) TAKE 1 TABLET DAILY (BEST IF TAKEN ON EMPTY STOMACH) 90 Tablet 2 024 Active dulaglutide (TRULICITY) 0.75 mg/0.5 mL subcutaneous penIndications:Di abetes mellitus without complication (HC) Inject 0.75 mg subcutaneous once weekly. 6 mL 3 024 Active meloxicam 15 mg tabletIndications :Primary osteoarthritis of both knees Take 1 Tablet (15 mg) by mouth once daily. 90 Tablet 3 025 Active metFORMIN 500 mg Extended-Release tabletIndications :Type 2 diabetes mellitus with complication, without long-term current use of insulin (HC) one pill on in the morning and 2 pill oral at supper time. 270 Tablet 3 025 Active pantoprazole 40 mg delayed-release tabletIndications :Gastroesophageal reflux disease without esophagitis Take 1 Tablet (40 mg) by mouth once daily. 90 Tablet 025 Active oxybutynin XL 5 mg CR tabletIndications :Urinary incontinence, unspecified type Take 1 Tablet (5 mg) by mouth once daily. 90 Tablet 3 025 Active hydroCHLOROthiazi de 25 mg tabletIndications :Hypertension, unspecified type Take 1 Tablet (25 mg) by mouth once daily. 90 Tablet 025 Active ketoconazole 2 % creamIndications: Tinea corporis MASSAGE ONTO BOTTOMS OF FEET TWICE DAILY 60 g 2 025 Active Trelegy Ellipta 100-62.5-25 mcg inhalerIndication s:COPD, moderate (HC) USE 1 INHALATION DAILY 180 Each 3 025 Active omega-3 fatty acids-vitamin E (FISH OIL) 1,000 mg Cap takes two caps daily 0 009 2024 Discontinued(* Med complete/Regim en complete/Level of care change) ketoconazole 2% topical (NIZORAL) creamIndications: Tinea corporis MASSAGE ONTO BOTTOMS OF FEET TWICE DAILY 60 g 2 022 2024 Discontinued(R eorder (E-cancel not sent)) oxybutynin XL (DITROPAN XL) 5 mg CR tabletIndications :Urinary incontinence, unspecified type Take 1 Tablet (5 mg) by mouth once daily. 90 Tablet 3 024 2024 Discontinued(R eorder (E-cancel not sent)) pantoprazole (PROTONIX) 40 mg delayed-release tabletIndications :Gastroesophageal reflux disease without esophagitis Take 1 Tablet (40 mg) by mouth once daily. 90 Tablet 024 2024 Discontinued(R eorder (E-cancel not sent)) hydroCHLOROthiazi de 25 mg tabletIndications :Hypertension, unspecified type Take 1 Tablet (25 mg) by mouth once daily. 90 Tablet 024 2024 Discontinued(R eorder (E-cancel not sent)) Trelegy Ellipta 100-62.5-25 mcg inhalerIndication s:COPD, moderate (HC) USE 1 INHALATION DAILY 180 Each 3 024 2024 Discontinued estradioL (ESTRACE) 0.01% (0.1 mg/g) vaginal cream Insert 1 g into the vagina. 024 2024 Discontinued(* Med complete/Regim en complete/Level of care change) cephalexin 500 mg capsuleIndication s:urinary tract infection Take 1 Capsule (500 mg) by mouth two times daily for 7 days. 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 History of tobacco use 02/23/2022 Chronic obstructive pulmonary disease 10/09/2019 Overview (03/17/2021): seen by pulmonology: recommend annual breathing testing. [...] reflux 08/26/2006 Other and unspecified hyperlipidemia 08/26/2006 Resolved Problems Problem Noted Date Diagnosed Date Resolved Date Positive colorectal cancer s creening using Cologuard test 08/11/2024 03/24/2025 Obesity, morbid 06/04/2022 03/12/2023 Left hip pain [...] right hip 10/10/201708/01 Knee pain 11/08/2011 08/01/2018 Overview (11/08/2011): Knee pain: known meniscal tear: not repairable, intermittent FMLA paperwork completed:11/07/2011 Moderate persistent asthma 05/26/2011 0 02/15/2016 Moderate persistent asthma 05/26/2011 0 05/26/2011 Carline's thyroiditis 01/09/201005/08 Unspecified asthma(493.90) 01/09/2010 0 05/26/2011 Vitamin D deficiency 01/05/2010 010 Chronic airway obstruction, not elsewhere classified 08/26/2006 10/09/2019 Overview (08/26/2006): asthma pulmonary function testing revealed moderate obstruction Osteoarthrosis, unspecified whether generalized or localized, unspecified site 08/26/2006 03/12/2023 Myalgia and myositis, unspecified 08/26/2006 04/06/2010 Type II or unspecified type diabetes mellitus without mention of complication, not stated as uncontrolled 03/24/2025 Chronic obstructive pulmonary disease 08/01/2018 Simple chronic bronchitis Gastroesophageal reflux disease 08/01/2018 Chronic pain of right hip Status post hip surgery 07/08 Encounters Date Type Department Care Team Description 04/06/2025 2:20 PM CDT Office Visit [facility] [address] [place] [phone] Devante Blackmon MD Procedure (L3-4 ILESI) 04/05/2025 Travel 04/01/2025 Refill [facility] [address] [place] [address] Tiara Sanford MD Refill Request (Trelegy Ellipta) 03/25/2025 3:00 PM CDT Office Visit [facility] [address] [place] [address] Devante Blackmon MD Musculoskeletal Problem (Follow up back, left hip and left knee pain ) 03/25/2025 Travel 03/24/2025 1:00 PM CDT Office Visit [facility] [address] [place] [address] Tiara Sanford MD Diabetes; UTI (urinary burning/frequency) 03/23/2025 Travel 03/15/2025 10:00 AM CDT [place] [facility] [address] [place] [address] Radha Gonzalez, OD Post-op (Final OU) 03/14/2025 Travel 03/12/2025 2:45 PM CDT Orders Only [address] [phone] Lab, [facility] 03/12/2025 Travel 03/10/2025 Travel 02/25/2025 Orders Only [facility] [address] [place] [address] Radha Gonzalez, OD <No scans attached> 02/25/2025 Telephone [facility] [address] [place] [address] Radha Gonzalez, OD Post-op (IOL OU) 02/16/[address] [address] Tiara Sanford MD Form (Oxygen Renewal) 02/09/2025 Orders Only [facility] Scanner 1 scan: (1-Ord) UNKNOWN FACILITY, PHACOEMULSIFICATION WITH LENS IMPLANTATION, 02/09/2025 02/02/2025 Orders Only [facility] Scanner 1 scan: (1-Ord) [facility], CATARACT, 02/02/2025 01/22/2025 1:00 PM CDT Office Visit [address] [place] [address] Tiara Sanford MD Pre-Op Exam (Cataract surgery 02/02/2025 & 02/09/2025) 01/22/2025 Travel 01/19/2025 Travel 01/13/[address] [address] Tiara Sanford MD Refill Request (Metformin, Meloxicam) from Last 3 Months Immunizations Immunization Administration Dates Next Due COVID-19 vaccine (Moderna 100mcg/0.5mL) SOFYA KHANNA 01/15/2022,07/28/2021,12/09/2020,11/11 Hepatitis A (Adult) 04/03/2010,10/17/2009 Influenza A (H1N1), Inactiva loraine (Age >=3 Years) 10/04/2009 Influenza, High-dose Inactivated 08/07/2019,04/2016 Influenza, High-dose Quadriv alent Inactivated 07/02/2023,07/25/2022 Influenza, IIV3 (Age 6-35 mos) 09/11/2011 Influenza, IIV3 (Age >=3 years) 07/01/20 13,09/01/2012,09/11/2011,07/26,10/04/2009,08/26/2006 Influenza, IIV4 08/06/2019,08/12/2015,07/05/2014 Influenza, Inactivated AIIV4 (Age 65+ Years) Preserv Free 08/21/2021,08/06/2020 Influenza, Inactivated IIV3 (Age 65+ Years) Preserv Free 08/14/2024,06/23/2018,07/11/2017 Pneumococcal Poly,23-Valent (Pneumovax) 08/14/2017,08/26/2006 Pneumococcal conj 13-Valent (Prevnar 13) 08/13/2016 RSV, Bivalent Vaccine Recons tituted (Abrysvo 120MCG/0.5mL) 10/02/2023 Td (Age >=7 Years) 10/07/1997 Tdap 02/19/2022,04/01/2009 Tetanus Toxoid 10/07/1997 Typhoid (injectable) 04/03/2010 Zoster (Zostavax-ZVL, live) 07/06/2014 [...] Answer Date Recorded PHQ-2 TOTAL SCORE 0 07/03/2024 Social Connections Answer Date Recorded Do you often feel lonely or isolated from those around you? 0 04/16/2024 Financial Resource Strain Answer Date R ecorded Difficulty of Paying Living Expenses 3 04/16/2024 Difficulty of Paying Living Expenses Not on file 04/16/2024 Food Insecurity Answer Date Recorded Do you worry your food will run out before you are able to buy more? 1 04/16/2024 Transportation Needs Answer Date Record ed Does lack of transportation keep you from medica l appointments? 1 04/16/2024 Does lack of transportation keep you from work, meetings or getting things that you need? 1 04/16/2024 Housing Stability Answer Date Recorded What is your housing situation today? 1 04/16/2024 Interpersonal Safety Answer Date Record ed Are you being hit, kicked, p ushed or yelled at (see row info)? No 04/09/2024 Interpersonal Safety Abuse 12 - 18 Not on file 04/09/2024 Interpersonal Safety Ambulatory Vulnerability No t on file 04/09/2024 Utilities Answer Date Recorded Do you have trouble paying f or utilities (for example, heat, electricity, water, phone)? 1 04/16/2024 Comments No Sex and Gender Information Value Date Recorded Sex Assigned at Not on file Legal Sex Female 5:23 AM [employer] MILL RO[employer] Gender Identity Female 10/03/2022 7:24 AM [employer] MILL RO[employer] Sexual Orientation Not on file Occupation Industry Job Start Date Job End Date retired Not on file Not on file Not on file Obstetrics History Para Term AB IAB SAB Ectopic Multiple Livin g Live Births 4 4 Date Outcome GA Total Labor Labor/2nd/3rd Weight Sex Type Anes PTL Ana A1 A5 Name Clin Last Filed Vital Signs Vital Sign Reading Time Taken Comments Blood Pressure 152/66 03/25/2025 2:59 PM CDT Pulse 75 03/25/2025 2:59 PM CDT Temperature 36.7 C (98 F) 03/25/2025 2:59 PM CDT Respiratory Rate 16 08/11/2024 1:30 PM [employer] Oxygen Saturation 91% 03/25/2025 2:59 PM CDT Inhaled Oxygen Concentration - - Weight 101 kg (222 lb 9.6 oz) 03/24/2025 12:58 P M CDT Height 164 cm (5' 4.57) 01/22/2025 1:09 PM CDT Body Mass Index 37.54 01/22/2025 1:09 PM CDT Plan of Treatment Upcoming Encounters Date Type Department Care Team (Late st Contact Info) Description 05/19/2025 1:00 PM CDT Office Visit [facility] [address] [place] [address] Devante Blackmon MD [address] [place] [address] 06/25/2025 11:45 AM CDT Office Visit [facility] [address] [facility] [place] [phone] Tiara Sanford MD [address] [facility] [place] [address] 08/12/2025 12:45 PM [employer] Office Visit [facility] [address] [place] [phone] Andi Pickens MD [address] [place] [address] Health Maintenance Due Date Last Done Comments Zoster (shingles) series for age 50+ (2 of 3) 08/31/2014 07/06/2014 COVID-19 vaccine series ( season) 2024 07/02/2023, 07/10/2022, 01/15/2022, Additional history exists Influenza Vaccine (#1) 2025 , 08/21/2021, 08/06/2020, Additional history exists Medicare Wellness for age 65+ 07/04/2025 07/03/2024, 2023, 02/07/2022, Additional history exists Depression screening for age 12+ 07/06/2025 07/06/2024, 07/03/2024, 02/17/2024, Additional history exists Mammogram for age 45-75 09/02/2025 09/02/20 24, 09/26/2023, 10/05/2022, Additional history exists BMI (ht and wt on same day) for age 18+ 01/22/2026 01/22/2025, 07/03/2024, 02/17/2024, Additional history exists Colonoscopy through age 75 08/11/202908/11, 05/06/2008, 05/06/2008 Lipids for age 45-75 03/12/2030 03/12/2025, 02/17/2024, 2023, Additional history exists Tetanus booster 02/20/2032 02/19/2022, 03/08, 10/07/1997 DEXA/DXA scan for age 65+ Completed 07/04/2017 Pneumococcal series for age 50+ Completed 08/14/2017, 08/13/2016, 08/26/2006 Hepatitis C screening for age 18-79 Completed 10/09/2019 RSV vaccine for adults or Completed 10/02/2023 Hepatitis B series for 19+ Aged Out N o longer eligible based on patient's age to complete this topic Medical Devices Implanted Type Area Programmer Operator Numerical Control Device Identifier Shelf Expiration Date Model / Serial / Lot [id number] - [id number] Implanted:Qty: 1 on 10/29/2017 by Chris Olvera MD at [facility] Right: Hip [employer] 05/07/2022 [id number] / / [id number] Description:Tritanium Hemispherical Cluster Hole Shell SILVESTRE 50mm ALPH CDE D [id number] - [id number] Implanted:Qty: 1 on 10/29/2017 by Chris Olvera MD at [facility] Right: Hip [employer] 07/22/[id number] / / [id number] Description:Torx 6.5mm Cancellous Bone Screw TEETEE 6.5mm LNTH 20mm [id number] - [id number] Implanted:Qty: 1 on 10/29/2017 by Chris Olvera MD at [facility] Right: Hip [employer] 08/07/[id number] / / [id number] Description:Torx 6.5mm Cancellous Bone Screw TEETEE 6.5mm LNTH 16mm [id number] - [id number] Implanted:Qty: 1 on 10/29/2017 by Chris Olvera MD at [facility] Right: Hip [employer] 07/16/[id number] / / [id number] Description:Acetabular Dome Hole Plug [id number] - [id number] Implanted:Qty: 1 on 10/29/2017 by Chris Olvera MD at [facility] Right: Hip [facility] 07/15/2022 [id number] / / [id number] Description:Trident X3 10 degree Polyethylene Insert ID 32 mm ALPH CDE D [id number] - [id number] Implanted:Qty: 1 on 10/29/2017 by Chris Olvera MD at [facility] Right: Hip [employer] 12/04/2019 [id number] / / [id number] Description:Accolade II 127 degree Neck Angle Hip Stem SILVESTRE #4 NK LNTH 35 mm STM LNTH 105mm TPR V40 [id number] - [id number] Implanted:Qty: 1 on 10/29/2017 by Chris Olvera MD at [facility] Right: Hip [employer] 07/03/2022 [id number] / / [id number] Description:Biolox delta Ceramic V40 Femoral Head OD 32mm NK LNTH +0mm [id number] - [id number] Implanted:Qty: 1 on 08/05/2018 by Chris Olvera MD at [facility] Right: Knee [employer] 05/03/2028 [id number] / / [id number] Description:Moira II right tibial baseplate [id number] - [id number] Implanted:Qty: 1 on 08/05/2018 by Chris Olvera MD at [facility] Right: Knee [employer] 11/11/2027 [id number] / / [id number] Description:Moira II resur facing patellar component [id number] - [id number] Implanted:Qty: 1 on 08/05/2018 by Chris Olvera MD at [facility] Right: Knee [employer] 05/01/2026 [id number] / / [id number] Description:Size 3-4 9mm leg ion ps xl pe high flexion articular insert Cmnt Bone 40gm Rally Mv Ab - [id number] Implanted:Qty: 2 on 08/05/2018 by Chris Olvera MD at [facility] Right: Knee [employer] 03/06/2023 [id number] / / [id number] Description:cement [id number] - [id number] Implanted:Qty: 1 on 08/05/2018 by Chris Olvera MD at [facility] Right: Knee [employer] 01/11/2028 [id number] / [id number] Description:Posterior stabil ized legion Procedures Procedure Name Priority Date/Time Associated Diagnosis Comments AMB EPIDURAL STEROID INJECTION Routine 04/06/2025 6:55 AM CDT Spinal stenosis of lumbar region with neurogenic claudication Lumbar radiculopathy URINALYSIS MICROSCOPIC STAT 03/24/2025 1:27 PM CDT UTI (urinary tract infection), uncomplicated URINE CULTURE STAT 03/24/2025 1:27 PM CDT UTI (urinary tract infection), uncomplicated UA W/ SEDIMENT EXAM REFLEXED PER CRITERIA STAT 03/24/2025 1:27 PM CDT UTI (urinary tract infection), uncomplicated URINE ALBUMIN TO CREATININE RATIO, RANDOM Routine 03/12/2025 3:02 PM CDT Type 2 diabetes mellitus with diabetic cataract, without long-term current use of insulin (HC) BASIC METABOLIC PANEL Routine 03/12/2025 2:39 PM CDT Type 2 diabetes mellitus with diabetic cataract, without long-term current use of insulin (HC) ALT (SGPT) Routine 03/12/2025 2:39 PM CDT Type 2 diabetes mellitus with diabetic cataract, without long-term current use of insulin (HC) LIPID PANEL W REFLEX MEASURED LDL Routine 03/12/2025 2:39 PM CDT Type 2 diabetes mellitus with diabetic cataract, without long-term current use of insulin (HC) VITAMIN D 25 (DEFICIENCY) Routine 03/12/2025 2:39 PM CDT Vitamin D deficiency TSH Routine 03/12/2025 2:39 PM CDT Hypothyroidism, unspecified type HEMOGLOBIN A1C Routine 03/12/2025 2:39 PM CDT Type 2 diabetes mellitus with diabetic cataract, without long-term current use of insulin (HC) SCAN-OPERATIVE/PROCE DURE REPORT 02/09/2025 12:00 AM CDT SCAN-OPERATIVE/PROCE DURE REPORT 02/02/2025 12:00 AM CDT XR MAMMO KATHE BILAT SCREEN Routine 09/02/2024 2:15 PM [employer] Encounter for other screening for malignant neoplasm of breast COLONOSCOPY 08/11/2024 11:54 AM [employer]ER ANTI HCV Add On 10/09/2019 1:08 PM [employer] Encounter for hepatitis C screening test for low risk patient XR DXA BONE DENSITY 2 SITES AXIAL Routine 07/04/2017 11:40 AM CDT Post-menopausal from Last 3 Months or Most Recently Relevant to Health Maintenance Results * (ABNORMAL) URINALYSIS MICROSCOPIC (03/24/2025 1:27 PM CDT) RBC 0-2 0-2, None Seen /HPF 03/24/2025 2:35 PM CDT [facility] WBC 51-100(A) 0-2, 3-5, None Seen /HPF 03/24/2025 2:35 PM CDT [facility] Comment:This is a corrected result. Previously reported as >100 /HPF with reference range 0-2, 3-5, None Seen /HPF on 03/24/2025 at 1425 CDT BACTERIA Many(A) None Seen, Rare, Few Bacteria/ HPF 03/24/2025 2:35 PM CDT [facility] EPITHELIAL CELLS Few None Seen, Few Epi/HPF 03/24/2025 2:35 PM CDT [facility] WHITE CELL CLUMPS Present(A) (none) 03/24/2025 2:35 PM CDT [facility] CALCIUM OXALATE CRYSTALS 03/24/2025 2:35 PM CDT [facility] Comment:This is a corrected result. Previously reported as Present with reference range (none) on 03/24/2025 at 1425 CDT Urine URINE SPECIMEN / Unknown Non-Blood / Unknown 03/24/2025 1:27 PM CDT 03/24/2025 1:27 PM CDT Tiara Sanford MD URINE Edited Res ult - Final [facility] [address] [place], [place] [id number] * (ABNORMAL) URINE CULTURE [57800.2] - STAT (03/24/2025 1:27 PM CDT) CULTURE RESULT(A) 03/26/2025 6:47 AM CDT [facility] CULTURE >100,000 CFU/mL Klebsiella pneumoniae 03/26/2025 6:47 AM CDT [facility] Urine URINE SPECIMEN / Unknown Non-Blood / Unknown 03/24/2025 1:27 PM CDT 03/24/2025 1:27 PM CDT Narrative Organism Antibiotic Method Susceptibility Klebsiella pneumoniae TRIMETHOPRIM/SULF <=10/25: S Klebsiella pneumoniae AMPICILLIN >=32: R Klebsiella pneumoniae CEFAZOLIN 2: S Klebsiella pneumoniae CEFAZOLIN-UC 2: S Comment:Cefazolin-UC interpretations are for therapy of uncomplicated UTIs due to E.coli, K.pneumoniae, or P.mirablis. Cefazolin breakpoint is used as a surrogate to predict results for the oral agents - cefdinir, cefuroxime, and cephalexin, when used for therapy of uncomplicated UTIs due to E coli, K, pneumoniae, and P. mirabilis. The FDA recommends cefadroxil susceptibility can be deduced from cefazolin. Klebsiella pneumoniae GENTAMICIN <=1: S Klebsiella pneumoniae CEFTRIAXONE <=0.25: S Klebsiella pneumoniae CEFTAZIDIME <=0.5: S Klebsiella pneumoniae LEVOFLOXACIN <=0.12: S Klebsiella pneumoniae CIPROFLOXACIN <=0.06: S Klebsiella pneumoniae PIPERACILLIN/TAZO <=4: S Klebsiella pneumoniae AMPICILLIN/SULBACTAM 4: S Klebsiella pneumoniae CEFEPIME <=0.12: S Klebsiella pneumoniae MEROPENEM <=0.25: S Klebsiella pneumoniae NITROFURANTOIN 32: S us Tiara Sanford MD MICROBIOLOGY Final Resu lt [facility] [address] [place] [address], [place] * (ABNORMAL) UA W/ SEDIMENT EXAM REFLEXED PER CRITERIA [50237.2] - STAT (03/24/2025 1:27 PM T) COLOR Yellow Yellow Color 03/24/2025 2:19 PM [facility] CLARITY Slightly Cloudy(A) Clear Clarity 03/24/2025 2:19 PM [facility] SPECIFIC GRAVITY,URINE 1.015 1.010, 1.015, 1.020, 1.025 03/24/2025 2:19 PM [facility] PH,URINE 6.0 6.0, 7.0, 8.0, 5.5, 6.5, 7.5, 8.5 03/24/2025 2:19 PM [facility] UROBILINOGEN, QUALITATIVE Normal Normal EU/dl 03/24/2025 2:19 PM [facility] PROTEIN, URINE Negative Negative mg/dL 03/24/2025 2:19 PM [facility] GLUCOSE, URINE 250(A) Negative mg/dL 03/24/2025 2:19 PM [facility] KETONES,URINE Negative Negative mg/dL 03/24/2025 2:19 PM [facility] BILIRUBIN,URI NE Negative Negative 03/24/2025 2:19 PM [facility] OCCULT BLOOD,URINE Negative Negative 03/24/2025 2:19 PM [facility] NITRITE Positive(A) Negative 03/24/2025 2:19 PM [facility] LEUKOCYTE ESTERASE Moderate(A) Negative 03/24/2025 2:19 PM [facility] Urine URINE SPECIMEN / Unknown Non-Blood / Unknown 03/24/2025 1:27 PM CDT 03/24/2025 1:27 PM CDT Tiara Sanford MD URINE Final Resu lt Performing Organization Address City/[facility]/ZIP Co de Phone Number [facility] [address] [place] [address] * URINE ALBUMIN TO CREATININE RATIO, RANDOM (03/12/2025 3:02 PM CDT) ALB RAND URINE <12.0 mg/L 03/13/2025 12:04 AM CDT [facility] CREATININE,URINE 0.60 g/L 03/13/20 12:04 AM CDT [facility] ALBUMIN TO CREATININE RATIO,RAND UR 03/13/2025 12:04 AM CDT [facility] Comment:Urine Albumin below measurement range, unable to calculate. Urine URINE SPECIMEN / Unknown Non-Blood / Unknown 03/12/2025 3:02 PM CDT 03/12/2025 3:02 PM CDT Narrative [facility] - 03/13/2025 12:04 AM CDT If Albumin to Creatinine Ratio is elevated, consider the following: Elevations seen with incipient nephropathy associated with diabetes mellitus or hypertension. Stress, exercise,hematuria, and urinary tract infection may also produce elevated results. If clinically indicated, confirm with 24 Hour Albumin to Creatinine Ratio. Tiara Sanford MD URINE Final Resu lt Performing Organization Address City/[facility]/ZIP Co de Phone Number [facility] [address] [place] [address], [place] * (ABNORMAL) HEMOGLOBIN A1C (03/12/2025 2:39 PM CDT) HEMOGLOBIN A1C 7.3(H) <5.7 % [facility] Comment: For someone without known diabetes, a hemoglobin A1c value of 6.5% or greater indicates that they may have diabetes and this should be confirmed with a follow-up test. For someone with known diabetes, a value <7% indicates that their diabetes is well controlled and a value greater than or equal to 7% indicates suboptimal control. A1c targets should be individualized based on duration of diabetes, age, comorbid conditions, and other considerations. Currently, no consensus exists regarding use of hemoglobin A1c for diagnosis of diabetes for children. Blood BLOOD SPECIMEN / Unknown 03/12/2025 2:39 PM CDT 03/12/2025 2:41 PM CDT Narrative [facility] - 03/13/2025 3:36 AM CDT FASTING:NO FASTING: NO Tiara Sanford MD CHEMISTRY Final Resu lt [employer] [facility] [address] [place] [address], [facility] [address] [place] [address] * (ABNORMAL) LIPID PANEL W REFLEX MEASURED LDL (03/12/2025 2:39 PM CDT) [facility] CHOLESTEROL, TOTAL 186 <200 mg/dL [employer]-W oismael Powell HDL CHOLESTEROL 50 > OR = 50 mg/dL [employer]-W oismael Powell TRIGLYCERIDES 196(H) <150 mg/dL [employer]-W oismael Powell LDL-CHOLESTEROL 104(H) mg/dL (calc) [employer] [employer]-W richmond Powell Comment: Reference range: <100 Desirable range <100 mg/dL for primary prevention; <70 mg/dL for patients with CHD or diabetic patients with > or = 2 CHD risk factors. LDL-C is now calculated using the Festus-Larry calculation, which is a validated novel method providing better accuracy than the Friedewald equation in the estimation of LDL-C. Festus SOTELO et al. JAIDA. 2013;310(19): 5322-0829 (http://education.FABPulous.Gregory Environmental/faq/GXR355) CHOL/HDLC RATIO 3.7 <5.0 (calc) [employer]W oismael Powell NON HDL CHOLESTEROL 136(H) <130 mg/dL (calc) [employer]W richmond Powell Comment: For patients with diabetes plus 1 major ASCVD risk factor, treating to a non-HDL-C goal of <100 mg/dL (LDL-C of <70 mg/dL) is considered a therapeutic option. Blood BLOOD SPECIMEN / Unknown 03/12/2025 2:39 PM CDT 03/12/2025 2:41 PM CDT Narrative [facility] - 03/13/2025 3:42 AM CDT FASTING:NO FASTING: NO Tiara Sanford MD CHEMISTRY Final Resu lt Performing Organization Address [facility] Co de Phone Number [employer] [address] [address], [employer] [address] * VITAMIN D 25 (DEFICIENCY) (03/12/2025 2:39 PM CDT) VITAMIN D,25-OH,TOTAL,IA 69 30 - 100 ng/mL [employer] [facility]- richmond Powell Comment: Vitamin D Status 25-OH Vitamin D: Deficiency: <20 ng/mL Insufficiency: 20 - 29 ng/mL Optimal: > or = 30 ng/mL For 25-OH Vitamin D testing on patients on D2-supplementation and patients for whom quantitation of D2 and D3 fractions is required, the QuestAssureD(TM) 25-OH VIT D, (D2,D3), LC/MS/MS is recommended: order code 99706 (patients >2yrs). See Note 1 Note 1 For additional information, please refer to http://education.[employer]/faq/KDX200 (This link is being provided for informational/ educational purposes only.) Blood BLOOD SPECIMEN / Unknown 03/12/2025 2:39 PM CDT 03/12/2025 2:41 PM CDT Narrative [facility] - 03/13/2025 4:57 AM CDT FASTING:NO FASTING: NO Tiara Sanford MD SEND OUTS Final Resu lt Performing Organization Address City/[facility]/ZIP Co de Phone Number [employer] [address] [place] [address], [place] [phone] [facility]Demarco Powell [address] [address] * TSH (03/12/2025 2:39 PM CDT) [facility] TSH 1.50 0.40 - 4.50 mIU/L [facility]Fransisco Powell Blood BLOOD SPECIMEN / Unknown 03/12/2025 2:39 PM CDT 03/12/2025 2:41 PM CDT Narrative [facility] - 03/13/2025 4:57 AM CDT FASTING:NO FASTING: NO Tiara Sanford MD CHEMISTRY Final Resu lt Performing Organization Address [facility]/ZIP Co de Phone Number [facility] [place] [address] [place] [address], [facility]Demarco Powell [address] [place] [address] * ALT (SGPT) (03/12/2025 2:39 PM CDT) [facility] ALT 18 6 - 29 U/L [facility]Fransisco Powell Blood BLOOD SPECIMEN / Unknown 03/12/2025 2:39 PM CDT 03/12/2025 2:41 PM CDT Narrative [facility] - 03/13/2025 3:42 AM CDT FASTING:NO FASTING: NO Tiara Sanford MD CHEMISTRY Final Resu lt Performing Organization Address [facility]/ZIP Co de Phone Number [facility] [address] [place] [address], [place] [phone] [facility] [address] [place], [place] [address] * (ABNORMAL) BASIC METABOLIC PANEL (03/12/2025 2:39 PM CDT) [facility] GLUCOSE 96 65 - 99 mg/dL [facility]-Liliana Powell Comment: Fasting reference interval UREA NITROGEN (BUN) 13 7 - 25 mg/dL [facility] CREATININE 0.81 0.60 - 1.00 mg/dL [facility] EGFR 77 > OR = 60 mL/min/1. 73m2 [facility] BUN/CREATININE RATIO SEE NOTE: 6 - 22 (calc) [facility] Comment: Not Reported: BUN and Creatinine are within reference range. SODIUM 138 135 - 146 mmol/L [facility] POTASSIUM 4.0 3.5 - 5.3 mmol/L [facility] CHLORIDE 98 98 - 110 mmol/L [facility] CARBON DIOXIDE 33(H) 20 - 32 mmol/L [facility] ELECTROLYTE BALANCE 7 7 - 17 mmol/L (calc) [facility] CALCIUM 10.3 8.6 - 10.4 mg/dL [facility] Blood BLOOD SPECIMEN / Unknown 03/12/2025 2:39 PM CDT 03/12/2025 2:41 PM CDT Narrative [facility] - 03/13/2025 3:42 AM CDT FASTING:NO FASTING: NO us Tiara Sanford MD CHEMISTRY Final Resu lt [employer] [facility] [address] [place] [address], [facility] [address] [place] [address] * SCAN-OPERATIVE/PROCEDURE REPORT (02/09/2025 12:00 AM CDT) us Scanner OTHER Final Result * SCAN-OPERATIVE/PROCEDURE REPORT (02/02/2025 12:00 AM CDT) us Scanner OTHER Final Result * XR MAMMO KATHE BILAT SCREEN (09/02/2024 2:15 PM TEMPER MILL ROLLER) Anatomical Region Laterality Modality BREASTS, Breast Left, Breast Right Bilateral Mammography Impressions 09/07/2024 7:00 AM TEMPER MILL ROLLER There is no radiographic evidence for malignancy. Recommend annual mammograms. MAMMOGRAM ASSESSMENT: ACR 2 Benign PATIENTS: You will also receive a letter with your examination results in an easy to read format. If you have questions about your results, please contact your referring provider. Narrative 09/07/2024 7:00 AM TEMPER MILL ROLLER For Patients: As a result of the Century Cures Act, medical imaging exams and procedure reports are released immediately into your electronic medical record. You may view this report before your referring provider. If you have questions, please contact your health care provider. XR MAMMO KATHE BILAT SCREEN [[id number]] CLINICAL HISTORY: This is an asymptomatic 74 y.o. patient. INDICATION FOR EXAM: Mammogram Screening. TECHNIQUE: CC & MLO views were obtained. This study was evaluated with the assistance of Computer-Aided Detection. Breast Tomosynthesis was used in interpretation. COMPARISON FILMS: Yes 09/26/23 [facility] FINDINGS: The breasts are heterogeneously dense, which may obscure small masses. No suspicious masses or microcalcifications. There are benign appearing calcifications.. us Tiara Sanford MD MAMMO Final Resu lt * COLONOSCOPY (08/11/2024 11:54 AM TEMPER MILL ROLLER) 08/11/2024 11:5 4 AM TEMPER MILL ROLLER Narrative Transcriptions Lelia Yeh DO - 08/11/2024 12:57 PM CST Patient Name: Analisa Cadet Procedure Date: 08/11/2024 Gender: Female Date of : 1950 Admit Type: Ambulatory Procedure: Colonoscopy Proceduralist: Lelia Yeh MD Referring MD: Tiara Sanford MD Indications/Pre-Op Diagnosis: Screening for colorectal malignant neoplasmdue to positive Cologuard test Medications: Propofol per Anesthesia, MonitoredAnesthesia Care Procedure Description: The patient had risks, benefits and alternatives explained to andgave informed consent. The patient had a stable cardiopulmonary status and judged an adequate candidate for conscious sedation. The endoscope [id number] was passed through the anus andadvanced to the cecum, identified by appendiceal orifice and ileocecal valve.The colonoscopy was performed without difficulty. The patient toleratedthe procedure well. The quality of the bowel preparation was excellent.The ileocecal valve, appendiceal orifice, and rectum were photographed. Complications: No immediate complications. Estimated Blood Loss & Specimen: Estimated blood loss was minimal. Specimen collected - Yes and sent to Laboratory Findings: The perianal and digital rectal examinations were normal. Pertinent negatives include normal sphincter tone, no palpable rectal lesionsand normal stool Hemoccult. A 4 mm polyp was found in the cecum. The polyp was sessile. The polyp was removed with a hot biopsy forceps. Resection and retrieval were complete. Verification of patient identification for the specimen was done. Estimated blood loss was minimal. A 5 mm polyp was found in the ascending colon. The polyp was sessile. The polyp was removed with a hot biopsy forceps. Resection andretrieval were complete. Verification of patient identification for thespecimen was done. Estimated blood loss was minimal. A 5 mm polyp was found in the sigmoid colon. The polyp was sessile.The polyp was removed with a hot biopsy forceps. Resection and retrieval were complete. Verification of patient identification for thespecimen was done. Estimated blood loss was minimal. The exam was otherwise without abnormality on direct and retroflexion views. Impressions/Post-Op Diagnosis: - One 4 mm polyp in the cecum, removed with a hot biopsy forceps. Resected and retrieved. - One 5 mm polyp in the ascending colon, removed with a hot biopsy forceps. Resected and retrieved. - One 5 mm polyp in the sigmoid colon, removed with a hot biopsy forceps. Resected and retrieved. - The examination was otherwise normal on direct and retroflexionviews. Recommendation: - Patient has a contact number available for emergencies. The signsand symptoms of potential delayed complications were discussed with the patient. Return to normal activities tomorrow. Written discharge instructions were provided to the patient. - Discharge patient to home (ambulatory). - Resume previous diet. - Continue present medications. - Await pathology results. - Repeat colonoscopy in 5-10 years for surveillance based onpathology results. Lelia Yeh MD 08/11/2024 12:57:17 PM This report has been signed electronically. Note Initiated On: 08/11/2024 11:54 AM Lelia Yeh DO PROCEDURE ORD Final Res ult * ANTI HCV (10/09/2019 1:08 PM TEMPER MILL ROLLER) HEPATITIS C ANTIBODY Non-React aleksander Non-React aleksander 10/09/2019 7:45 PM TEMPER MILL ROLLER [facility] Comment:Antibodies to HCV no t detected; does not exclude the possibility of exposure to HCV. Blood BLOOD SPECIMEN / Unknown Venipuncture / Unknown 10/09/2019 1:08 PM TEMPER MILL ROLLER 10/09/2019 1:09 PM TEMPER MILL ROLLER Tiara Sanford MD SEND OUTS Final Resu lt [facility] [address] [place] [address], [place] * XR DXA BONE DENSITY 2 SITES AXIAL (07/04/2017 11:40 AM CDT) Anatomical Region Laterality Modality Spine, HIPS, HIPL, HIPR Bone Den sitometry Narrative 07/09/2017 10:29 AM CDT Please see scanned document for results of this study. Tiara Sanford MD DEXA Final Resu lt from Last 3 Months or Most Recently Relevant to Health Maintenance Insurance MEDICARE PB ONLY [employer] MEDICARE PART A HB ONLY MEDICARE PART B HB ONLY MEDICARE PROVIDER [facility] [employer] [facility] Advance Directives * Full Code (Latest Code Status on File) Date Activated Date Inactivated Comments 08/11/2024 10:53 AM 08/11/2024 3:47 PM Question Answer Comments Code Status Discussion: Discussed * Full Code Date Activated Date Inactivated Comments 09/18/2023 8:28 [...] Comments Code Status Discussion: Discussed Care Teams Truck Driver Helper Relationship Specialty Start Date End Date Tiara Sanford MD [address] [place] [address] PCP - General 05/12/07 Radha Gonzalez, ISMAEL [address] [place] [address] Physician Scientist 11/07/11 Trino Cintron MD [address] [place] [address] Surgery - Otolaryngology 11/07/11 Edouard Shelton MD [address] [place] [address] Surgery - Orthopedics 11/07/11 Staff, Other Clinical . Cardiology Cardiovascular Disease 11/07/11
--- OUTSIDE RECORDS SUMMARY | 2025-04-07 00:23 | XMS_ITS | Clinical Summary ---
Author Organization [facility] Address [address] [place] [address] Care Team Providers Care Clinical Care Leader Name Role Phone Unavailable Primary Care Provider Unavailabl e Source Comments Patient records contain information from all sites at [facility]. For routine questions regarding patient records, call [phone] during business hours, M-F 8:00 AM - 5:00 PM Central Time. Record requests for emergency care only can be directed to [phone] at any time.[facility] Allergies Active Allergy Reactions Criticality Noted Date Comments Atorvastatin Myalgia 10/31/2006 Medications olopatadine (PATANOL) 0.1 % ophthalmic solution Administer 1 drop into affected eye(s). 0 Active albuterol 90 mcg/actuation inhaler Inhale 1-2 puffs every 4 (four) hours as needed. 3 Active Trelegy Ellipta 100-62.5-25 mcg inhaler Inhale. 3 Active levothyroxine 112 mcg tablet Take 112 mcg by mouth daily before morning meal. 3 Active glipiZIDE (GlucotroL XL) 10 mg 24 hr tablet Take 10 mg by mouth. 4 Active predniSONE (Deltasone) 20 mg tablet Take 20 mg by mouth daily as needed. 3 Active azithromycin (Zithromax) 250 mg tablet 3 Active metFORMIN (Glucophage) 500 mg tablet Take 100 mg by mouth 2 (two) times a day with meals. 3 Active hydroCHLOROthia zide (HydroDiuril) 25 mg tablet Take 1 tablet by mouth daily. 3 Active pantoprazole (Protonix) 40 mg EC tablet 3 Active rosuvastatin (Crestor) 5 mg tablet Take 1 tablet by mouth daily. 3 Active oxyBUTYnin (Ditropan-XL) 5 mg 24 hr tablet Take 5 mg by mouth. 4 Active meloxicam (Mobic) 15 mg tablet Take 1 tablet by mouth daily. 3 Active cholecalciferol (Vitamin D3) 50 mcg (2,000 Unit) capsule Take 1 capsule by mouth daily. 2 Active estradioL (Estrace) 0.1 mg/g (0.01%) vaginal cream Insert 1 g into the vagina 3 (three) times a week. Use nightly for first week. 42.5 g 11 4 Active polyvinyl alcohol (Tears Again) 1.4 % ophthalmic solution INSTILL 1 DROP INTO BOTH EYES EACH TIME IF NEEDED FOR DRY EYES 3 Active Active Problems Problem Noted Date Diagnosed Date Abnormal Feces 08/11/2024 Atrophy Vagina Due To Estrogen Deficiency 2023 Incontinence Urinary Stress And Urge 08/05/2024 Chronic Obstructive Pulmonary Disease 10/09/2019 Overview (08/25/2024): seen by pulmonology: recommend annual breathing testing. 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 03/28/2018 Basal Cell Carcinoma Skin Other Parts Face 03/16 Abnormal Electrocardiogram 11/10/2010 Deficiency Vitamin D 11/10/2010 Hypothyroidism 01/09/2010 Loss Hearing Sensorineural Bilateral 06/22/2008 Gastroesophageal Reflux Disease NOS 08/26/2006 Hyperlipidemia 08/26/2006 Immunizations Immunization Administration Dates Next Due H1N1 Inj 10/04/2009 HZV (ZOSTAVAX) 07/06/2014 HepA Adult 04/03/2010,10/17/2009 Influenza TIV (IM) 06/23/2018,07/11/2017 Influenza high dose QV(65 ye ars or older) (PF) 07/02/2023,07/25/2022 Influenza, Quadrivalent, Adj uvanted, Preservative Free 08/21/2021,08/06/2020 Influenza, Seasonal, Injectable 07/01/20 13,09/01/2012,07/26/2010,2008,08/26/2006 PCV13 08/13/2016 PPSV23 08/14/2017,08/26/2006 RSV: respiratory syncytial v irus (ABRYSVO) bivalent vaccine 10/02/2023 Tdap 02/19/2022,04/01/2009 Tetanus Toxoid, Adsorbed (discontinued) 10/07/1997 TyVi (inj) 04/03/2010 influenza trivalent high dos e (HD)(PF) 08/07/2019,08/13/2016 influenza trivalent vaccine (6 months and older)(PF) 09/11/2011 influenza vaccine quad (FLUZONE/FLUARIX) (6 months and older)(PF) 08/06/2019,08/12/2015,07/05/2014 Social History Tobacco Use Types Packs/Day Years Used Date Smoking Tobacco: Never Assessed Comments Unknown Sex and Gender Information Value Date Recorded Sex Assigned at Not on file Legal Sex 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 Gender Identity Not on file Sexual Orientation Not on file Plan of Treatment Health Maintenance Due Date Last Done Comments CT Colonography 1950 Diabetic Office Visit with Foot Exam 1950 FIT 1950 Hepatitis C Screening 1950 Office Visit for Blood Pressure Check / Re-check 1950 Urine Albumin 1950 Hepatitis B Vaccines (1 of 3 - Risk 3-dose series) 2011 Zoster Vaccines (2 of 3) 08/31/2014 07/06/2014 COVID-19 Vaccine ( season) 2024 07/02/2023, 07/10/2022, 01/15/2022, Additional history exists Depression Screening (Annual PHQ-2) 10/07/2024 Fall Risk Screen (Annual) 10/07/2024 Hemoglobin A1C 12/20/2024 09/21/2024, 06/08, 02/17/2024, Additional history exists Creatinine Level (Kidney Function Test) 02/16/2025 02/17/2024, 2023, 03/12/2023, Additional history exists Potassium Level 02/16/2025 02/17/2024, 09/0 05/2023, 03/12/2023, Additional history exists Sodium Level 02/16/2025 02/17/2024, 09/0 05/2023, 03/12/2023, Additional history exists Thyroid Stimulating Hormone (TSH) test for thyroid function 07/03/2025 07/03/2024, 07/03/2024, 02/17/2024, Additional history exists Influenza Vaccine (#1) 2025 , 07/02/2023, 07/25/2022, Additional history exists Dilated Eye Exam 08/24/2025 08/24/2024, , 06/07/2022, Additional history exists Mammogram 09/02/2025 09/02/2024, 08/08, 09/26/2023, Additional history exists Cologuard 06/04/2027 06/04/2024 Lipid (Cholesterol) Screening 02/16/2029 02/17/2024, 2023, 03/12/2023, Additional history exists DTaP,Tdap,and Td Vaccines (3 - Td or Tdap) 02/20/2032 02/19/2022, 04/01/2009 Colonoscopy 08/11/2034 08/11/2024, 05/06/2008 Colorectal Cancer Screening 08/11/2034 Bone Density Scan (Osteoporosis Screen) Discontinued 07/04/2017 Pneumococcal vaccine (50+ years) Completed 08/14/2017, 08/13/2016, 08/26/2006 RSV vaccine - (32-36 weeks) or 60+ years Completed 10/02/2023 IPV Vaccines Aged Out No longer eligi ble based on patient's age to complete this topic Insurance [address] [place] [id number] MEDICARE [facility]
== END 2025-04-06 13:51 | disposition home or self-care (01) ==
LOC: INJ CL 13:52
PROVIDERS: PCP Family Medicine; Visit Provider Family Medicine
DX: M54.16 Radiculopathy, lumbar region (principal); M51.369 Other intervertebral disc degeneration, lumbar region without mention of lumbar back pain or lower extremity pain
CPT/HCPCS: 62323; J0702; Q9966